=== PATIENT | female | born 1965 | race Caucasian/White ===

== ENCOUNTER 2018-06-21 07:08 | Inpatient (IN) ==
[2018-06-21] MEDS ORDERED: ONDANSETRON INJ 2 MG/ML 2 ML VIAL IV STA (07:51)
[2018-06-21] MEDS ORDERED: MoRPHine SULFATE 4 MG/ML 1 ML CARP\\VIAL IV STA ×2 (07:51→09:28)
[2018-06-21 08:14] LABS: Basophils # (auto) 0.02 K/uL (0-0.2); Basophils % (auto) 0.1 %; Eosinophils # (auto) 0.02 K/uL (0-0.5); Eosinophils % (auto) 0.1 %; Hematocrit (blood only) 32.5 % (37-47); Hemoglobin 10.8 g/dL (12.0-16.0); Immature Granulocytes # (auto) 0.08 K/uL (0.00-0.02); Immature Granulocytes % (auto) 0.4 %; Lymphocytes # (auto) 1.01 K/uL (1.2-3.4); Lymphocytes % (auto) 4.6 %; Mean Corpuscular Hgb Conc 33.2 g/dL (32-36); Mean Corpuscular Volume 80.8 fL (80-100); Monocytes # (auto) 1.49 K/uL (0.11-0.59); Monocytes % (auto) 6.7 %; Neutrophils # (auto) 19.52 K/uL (1.4-6.5); Neutrophils % (auto) 88.1 %; Platelet Count 368 K/uL (130-400); RDW Standard Deviation 44.3 fL (36.4-46.3); Red Blood Count 4.02 M/uL (4.2-5.4); White Blood Count 22.14 K/uL (4.8-10.8)
[2018-06-21 08:34] LABS: BUN Creatinine Ratio 16.3 (10-20); Calcium 9.5 mg/dl (8.5-10.1); Est GFR (African American) 64.7; Est GFR (Non-African American) 55.8
[2018-06-21 08:37] LABS: Albumin Globulin Ratio 0.7 (0.9-2); Bilirubin,Total 0.5 mg/dl (0.2-1); Globulin 4.1 gm/dl (2.5-4.0); Total Protein 7.1 gm/dl (6.4-8.2)
--- NOTE | 2018-06-21 09:10 | XRay Report ---
PA CHEST WITH ABDOMINAL SERIES CLINICAL HISTORY: Generalized abdominal pain. FINDINGS: A PA chest radiograph is obtained. No prior studies are available for comparison at the time of dicta tion. The cardiomediastinal silhouette is unremarkable. The lungs and pleural spaces are clear. No p neumothorax is seen. The bony thorax is grossly intact. Supine and erect abdominal radiographs are obtained. No prior studies are available for comparison at the time of dictation. There is a nonobstructed abdominal bowel gas pattern. No evidence of intrape ritoneal free air is seen. There are no abnormal abdominal calcifications. Phleboliths are seen in th e pelvis. The lumbosacral spine and bony pelvis appear intact. A naval piercing is noted. IMPRESSION: 1. No active disease in the chest. 2. Nonobstructed abdominal bowel gas pattern. Electronically signed by: Brent Moncada M.D. 06/21/2018 9:08 AM
[2018-06-21] MEDS ORDERED: IOVERSOL 100ml IV PRN (10:13)
--- NOTE | 2018-06-21 10:35 | CT Scan Report ---
CT SCAN OF THE ABDOMEN AND PELVIS WITH IV CONTRAST CLINICAL HISTORY: Generalized abdominal pain. COMPARISON STUDY: Abdominal radiographs dated 06/21/2018. TECHNIQUE: Following the IV administration of 93 cc of Optiray 320, CT scan of the abdomen and pelvi s is performed from the lung bases to the proximal femora. Images are reviewed in the axial, sagittal , and coronal planes. IV contrast was administered without complication. A dose lowering technique wa s utilized adhering to the principles of ALARA. CT DOSE: 570.95 mGy.cm FINDINGS: Lung bases: The heart is normal in size and without pericardial effusion. The lung bases are clear no ting bibasilar atelectasis. Liver: The contrast-enhanced liver is enlarged, measuring 24.3 cm in length. The liver is otherwise n ormal in contour and attenuation. There is no intrahepatic biliary ductal dilatation. The hepatic vei ns and portal veins are patent. Gallbladder: Unremarkable. Spleen: Normal in size and attenuation. Pancreas: Unremarkable. Adrenal glands: Unremarkable. Kidneys: The contrast enhanced kidneys are normal in size and without hydronephrosis. The kidneys enh ance symmetrically. Abdominal vasculature: The abdominal aorta is normal in course and caliber. Bowel: There is moderate colonic diverticulosis. There is significant clonic wall thickening and lupe a involving the distal descending/proximal sigmoid colon with surrounding pericolonic infiltration an d fluid consistent with severe acute diverticulitis. A diverticular abscess is seen along the medial aspect of the descending colon on image #[id number] and measures 3.3 x 2.7 cm. There is wall thickening invo lving loops of small bowel identified in the left midabdomen with surrounding mesenteric infiltration , likely related to adjacent diverticulitis. There is no bowel obstruction. The appendix is well-vis ualized and normal. Peritoneum: There is a small volume of abdominopelvic ascites. No intraperitoneal free air is seen. A naval piercing is noted. There is a small fat-containing umbilical hernia. Lymphadenopathy: None. Pelvic viscera: The bladder, uterus, and adnexa are normal as imaged. Skeletal structures: No lytic or blastic lesions are seen. IMPRESSION: 1. There is moderate colonic diverticulosis with evidence of severe acute diverticulitis involving th e distal descending/proximal sigmoid colon. 2. No intraperitoneal free air is seen. 3. A diverticular abscess is identified adjacent to the descending colon and measures 3.3 x 2.7 cm. 4. There is a small volume of abdominopelvic ascites. 5. There are thick-walled and edematous loops of small bowel in the left midabdomen with surrounding mesenteric infiltration. This is likely related to adjacent diverticulitis. 6. Hepatomegaly. 7. Additional findings as above. Electronically signed by: Brent Moncada M.D. 06/21/2018 10:34 AM
[2018-06-21] MEDS ORDERED: PIPERACILLIN/TAZOBACTAM 4.5 GM/120 ML BAG IV ONE (10:47)
[2018-06-21] MEDS ORDERED: PIPERACILL/TAZOBAC CONSULT ACTIVE PRN ×2 (10:47→12:54)
[2018-06-21] MEDS ORDERED: VANCOMYCIN HCL 1,000 MG/270 ML BAG IV STA (11:21)
[2018-06-21] MEDS ORDERED: VANCOMYCIN CONSULT ACTIVE PRN (11:21)
[2018-06-21] MEDS ORDERED: PIPERACILLIN/TAZOBACTAM 3.375 GM in DEXTROSE 5% 100 ML IV SCH (11:45)
--- NOTE | 2018-06-21 11:50 | History & Physical Report ---
Date of Service June 21, 2018 Assessment & Plan (1) Diverticulitis of intestine with abscess: Pt presented to ER with c/o abdominal pain x 2-3 days with tactile fevers and decreased appetite yesterday In ER pt afebrile, P: 104 down to 77, R: 18, BP: 135/88, 97% on RA. WBC: 22, H/H: 10.8/32.5, LFTs: WNL, Lipase: 61 CT ABD/PELVIS: 1. There is moderate colonic diverticulosis with evidence of severe acute diverticulitis involving the distal descending/proximal sigmoid colon. 2. No intraperitoneal free air is seen. 3. A diverticular abscess is identified adjacent to the descending colon and measures 3.3 x 2.7 cm. 4. There is a small volume of abdominopelvic ascites. 5. There are thick-walled and edematous loops of small bowel in the left midabdomen with surrounding mesenteric infiltration. This is likely related to adjacent diverticulitis. 6. Hepatomegaly. -In ER pt was given zofran, morphine, zosyn -Obtain lactic acid, blood cultures (cultures collected after zosyn started) -Zosyn, Vancomycin -IVF -NPO with sips and ice chips -GI consult, appreciate recommendations -General surgery consult, appreciate recommendations -Monitor CBC, BMP DVT Prophylaxis -Low risk, ambulate Full Code Pt does not have PCP. Pt was seen with Dr Prajapati. See addendum History of Present Illness Chief Complaint: Abdominal pain Primary Care Provider: NO PCP Pt is 52 y/o F with no significant past medical history presented to ER with complaint of abdominal pain x3 days. Patient states 3 days ago started with some low back aching and mild abdominal discomfort. Yesterday with increased abdominal pain worse to lower quadrants however pain is diffuse and described as sharp. Patient reports noted abdominal bloating. Yesterday with decreased ap petite and oral intake. Last night reports chills and tactile fevers. Denies nausea, vomiting, diarrhea, constipation. Denies ABBOTT, dizziness, syncope, vision changes, neck pain, CP, SOB, orthopnea, palpitations, cough, sore throat, choking, otalgia, rhinorrhea, melena, hematochezia, paresthesias, weakness, extremity edema, rashes, urinary symptoms. No hx colonoscopy. 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 Beliefs That Will Affect Care: None Current Living Situation: Alone Other Information That Helps Us Care for You: No Feels Safe at Home: Yes Safety Concerns: Feels Safe At This Time Smoking Status: Never smoker Do You Dip or Chew Tobacco: No Hx Alcohol Use: Yes (5 drinks a week) Hx Substance Use: No Review of Systems Review of Systems: All systems reviewed & are unremarkable except as noted in HPI & below Physical Exam Physical Exam: General: mild distress, holding abdomen, non-toxic appearance, WDWN Head: normocephalic, atraumatic Eyes: conjunctiva non-injected, anicteric ENT: normal inspection external ears, nose, mucous membranes mildly dry Neck: supple, trachea midline Lungs: clear, no respiratory distress, no wheezing/rhonchi/rales CV: RRR, no murmur, no pretibial edema Abd: normal BS, soft, slightly distended, +moderate tenderness to palpation, LLQ, RLQ with guarding, mild tenderness to palpation LUQ, RUQ Ext: no cyanosis, no calf tenderness Neuro: A&O x 3, no focal deficits noted, normal affect Skin: warm, dry Results & Data Vital Signs (Past 12 Hours) Vital Signs Temp Pulse Pulse Resp BP BP Pulse Ox 06/21/18 10:31 77 20 125/76 99 06/21/18 07:14 36.8 C 104 H 18 135/88 97 Laboratory Results Short CBC 06/21/18 Range/Units 08:06 WBC 22.14 H (4.8-10.8) K/uL Hgb 10.8 L (12.0-16.0) g/dL Hct 32.5 L (37-47) % Plt Count 368 (130-400) K/uL BMP 06/21/18 08:06 Sodium 139 Potassium 4.0 Chloride 109 H Carbon Dioxide 24 BUN 18 Creatinine 1.13 Glucose 105 H Calcium 9.5 Liver Function 06/21/18 Range/Units 08:06 Total Bilirubin 0.5 (0.2-1) mg/dl AST 23 (15-37) U/L ALT 27 (12-78) U/L Alkaline Phosphatase 42 L (45-117) U/L Albumin 3.0 L (3.4-5.0) gm/dl Diagnostic Findings CT ABD/PELVIS: IMPRESSION: 1. There is moderate colonic diverticulosis with evidence of severe acute diverticulitis involving the distal descending/proximal sigmoid colon. 2. No intraperitoneal free air is seen. 3. A diverticular abscess is identified adjacent to the descending colon and measures 3.3 x 2.7 cm. 4. There is a small volume of abdominopelvic ascites. 5. There are thick-walled and edematous loops of small bowel in the left midabdomen with surrounding mesenteric infiltration. This is likely related to adjacent diverticulitis. 6. Hepatomegaly. 7. Additional findings as above. CXR/ABD XRAY: IMPRESSION: 1. No active disease in the chest. 2. Nonobstructed abdominal bowel gas pattern. ECG Rhythm: normal sinus Supervising Physician Co-Signing Physician Notes ATTENDING ADDENDUM: Patient seen and examined, care coordinated with Isabella Herman PA-C This is a 52-year-old healthy female, with no known medical history, does not follow with any family physician, Presented with abdominal pain, for the past 2 days, No report of fever chills, no nausea vomiting or diarrhea CT abdomen pelvis in ER showed acute diverticulitis with diverticular abscess located in the descending colon size 3.2 X 2.7 cm Labs: Leukocytosis 22KLactic acid 0.7/mild elevation of procalcitonin 2.20 Afebrile mild tachycardia, improved with IV hydration, blood pressure stable 135/88, no hypoxia Stable to be admitted to medical surgical floor Empiric antibiotic with IV Zosyn Blood cultures ordered No evidence of microperforation noted in CT abdomen pelvis Bowel rest, n.p.o. okay to have ice chips sips of water IV fluids with LR at the rate 150 mL/h Pain controlled: IV Tylenol/Toradol/IV morphine for severe pain Surgery consult requested, Surgery team was updated by ER physician, Patient did not had any screening colonoscopy: Age 52 GI evaluation requested will need outpatient colonoscopy in 4 to 6 weeks, after acute diverticulitis resolves Patient is encouraged to establish care with family physicianagreeable Status: Full code VT prophylaxis: SCD and teds, low risk Patient is encouraged to ambulate Please refer to further documentation by Isabella Herman PA-C for discussion of other chronic issues Myrna Prajapati MD
[2018-06-21 12:08] LABS: Prothrombin Time 10.3 Seconds (9.0-12.0)
[2018-06-21] MEDS ORDERED: ONDANSETRON INJ 2 MG/ML 2 ML VIAL IV PRN (12:54)
[2018-06-21] MEDS ORDERED: KETOROLAC TROMETHAMINE 15 MG/ML VIAL IV PRN (12:54)
--- NOTE | 2018-06-21 12:54 | Consultation ---
Date of Consultation June 21, 2018 Assessment & Plan (1) Diverticulitis of intestine with abscess: 52 yr old woman with first episode of severe sigmoid diverticulitis with small abscess. Discussed initial nonoperative management with IV antibiotics, IVF, bowel rest. If no improvement in 48 hrs, would repeat CT to see if the abscess is larger and amenable to drainage. Discussed possibility of exploratory laparotomy, sigmoid resection, colostomy if she fails conservative management. All questions answered. Will follow. Dr. Pineda to take over tomorrow. Present on Admission?: Yes History of Present Illness Requesting Physician: Dr. Prajapati Reason for Consultation: perforated diverticulitis with abscess Attending Physician: Myrna Prajapati MD History of Present Illness 52 yr old woman who presented to the ER with abdominal pain that started 3 days ago. Initially thought she may have wrenched a muscle in her back. Pain localized more to the abdomen, most severe in bilateral lower quadrants but would radiate up through entire abdomen. Comes in waves of sharp/ stabbing/ cramping intensity. Unable to get comfortable in any position. No similar episodes in the past (did have a kidney issue with severe back pain at that time). No nausea or vomiting. Last bowel movement was this am and was normal. No fever noted but she was chilled last night. No relieving or exacerbating factors. Does have a family history of diverticular disease (half sister and mother). No fam history of colon cancer. 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 Beliefs That Will Affect Care: None Current Living Situation: Alone Other Information That Helps Us Care for You: No Feels Safe at Home: Yes Safety Concerns: Feels Safe At This Time Smoking Status: Never smoker Do You Dip or Chew Tobacco: No Hx Alcohol Use: Yes (5 drinks a week) Hx Substance Use: No Review of Systems Review of Systems: All systems reviewed & are unremarkable except as noted in HPI & below Physical Exam Constitutional: WD/WN, vitals as above Eyes: PERRL, conjunctivae normal, anicteric sclerae ENMT: external ear and nose normal, oropharynx normal Respiratory: normal respiratory effort, lungs clear to auscultation Cardiovascular: RRR, no murmur, no edema Gastrointestinal (Abdomen): Inspection/Auscultation: abdomen normal to inspection and + hypoactive bowel sounds; abdomen not distended Percussion/Palpation: + abdomen tender (diffusely but worst in lower quadrants), + guarding (lower abdomen bilaterally) and abdomen soft Skin: no rashes, warm and dry Neurologic: moves all extremities; no focal motor deficits Psychiatric: A+Ox3, euthymic affect Results & Data Vital Signs (Past 12 Hours) Vital Signs Temp Pulse Pulse Resp BP BP Pulse Ox 06/21/18 12:31 78 18 122/77 100 06/21/18 10:31 77 20 125/76 99 06/21/18 07:14 36.8 C 104 H 18 135/88 [address] 22.14 Hct 32[address] scan personally reviewed. IMPRESSION: 1. There is moderate colonic diverticulosis with evidence of severe acute diverticulitis involving the distal descending/proximal sigmoid colon. 2. No intraperitoneal free air is seen. 3. A diverticular abscess is identified adjacent to the descending colon and measures 3.3 x 2.7 cm. 4. There is a small volume of abdominopelvic ascites. 5. There are thick-walled and edematous loops of small bowel in the left midabdomen with surrounding mesenteric infiltration. This is likely related to adjacent diverticulitis. 6. Hepatomegaly. 7. Additional findings as above.
[2018-06-21] MEDS ORDERED: KETOROLAC TROMETHAMINE 15 MG/ML VIAL ONE (13:03)
[2018-06-21] MEDS: LACTATED RINGER'S 1,000 ML IV SCH ×2 (13:05→21:02)
[2018-06-21] MEDS: ACETAMINOPHEN 1,000 MG/100 ML VIAL IV SCH ×2 (13:43→21:02)
--- NOTE | 2018-06-21 14:53 | Emergency Department Note ---
History of Present Illness General Chief complaint: Abdominal Pain Stated complaint: ABD PAIN,LOWER BACK PAIN Time Seen by Provider: 06/21/18 07:28 Source: patient and friends Mode of arrival: ambulatory Limitations: no limitations History of Present Illness Maximum Pain Intensity: 5 This 52-year-old white female presents for evaluation of acute abdominal pain that began 2 days ago. There is no abdominal trauma. Patient states she worked out at the gym and was doing power lifting. She has a history of sports hernia, and states this feels somewhat similar. Pain comes in waves and is occasionally sharp, crampy, and severe. It seems to radiate up into her torso at times. Pain is not limited to her groin, but is rather diffuse across her abdomen. It is worse in the left lower quadrant. She has had a loss of appetite. She did move her bowels this morning without improvement. She has been urinating n ormally. She denies any fever but did have chills last night. A female friend accompanies her today. She did have a cup of coffee this morning. No food this morning. She does state that she has been increasing seeds and nuts in her diet, and has been eating a lot of trail mix. 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 Beliefs That Will Affect Care: None Current Living Situation: Alone Other Information That Helps Us Care for You: No Feels Safe at Home: Yes Safety Concerns: Feels Safe At This Time Smoking Status: Never smoker Do You Dip or Chew Tobacco: No Hx Alcohol Use: Yes (5 drinks a week) Hx Substance Use: No Review of Systems A total of 10 systems reviewed and were otherwise negative Physical Exam Vital Signs Vital Signs - 24 hr 06/21/18 07:14 06/21/18 08:20 06/21/18 10:31 Temperature 36.8 C Temperature Source Oral Sepsis Recent Fever Within 48 Hours No Sepsis Action Taken by Nursing No Action Required Pulse Rate 104 H Pulse Rate [Right Finger] 77 Pulse Rhythm Regular Pulse Rhythm [Right Finger] Regular Pulse Strength Normal Pulse Strength [Right Finger] Normal Respiratory Rate 18 20 Respiratory Effort / Characteristics Non-Labored Respiratory Depth Normal Respiratory Pattern Regular Blood Pressure 135/88 Blood Pressure [Left Arm] 125/76 Blood Pressure Mean 103 Blood Pressure Mean [Left Arm] 92 Blood Pressure Position Sitting Blood Pressure Position [Left Arm] Pulse Oximetry 97 99 Oxygen Delivery Method Room Air Room Air Room Air 06/21/18 12:09 06/21/18 12:31 06/21/18 12:56 Temperature 36.7 C Temperature Source Oral Sepsis Recent Fever Within 48 Hours Sepsis Action Taken by Nursing Pulse Rate Pulse Rate [Right Finger] 78 88 Pulse Rhythm Pulse Rhythm [Right Finger] Pulse Strength Pulse Strength [Right Finger] Respiratory Rate 18 17 Respiratory Effort / Characteristics Respiratory Depth Respiratory Pattern Blood Pressure Blood Pressure [Left Arm] 122/77 122/77 Blood Pressure Mean Blood Pressure Mean [Left Arm] 92 92 Blood Pressure Position Blood Pressure Position [Left Arm] Sitting Pulse Oximetry 100 98 Oxygen Delivery Method Room Air Room Air Room Air General: Well-developed, well-nourished, middle-aged white distress. Obvious discomfort. Sitting on a bed. Alert and oriented. Skin: Warm and dry with good turgor. No rashes or lesions. No ecchymosis or erythema. The patient is not diaphoretic. No abrasions. Pierced navel. Heart: Heart RRR. No MGR. Peripheral pulses are 2+. Lungs: Lungs are clear to auscultation. No crackles rhonchi or wheezing. Good air movement. The patient is able to take a deep breath. Abdomen: Abdomen was inspected, auscultated, and palpated. Bowel sounds present x 4 but very infrequent. Soft, diffuse tenderness to palpation, worst in the left lower quadrant. No hepato-splenomegaly. No masses noted. No rebound, negative Joseph sign. No pain over McBurney's point. No CVA tenderness. Musculoskeletal: Well muscled individual. Full range of motion of the upper and lower extremities. Mild discomfort with palpation over the posterior spinal musculature is in the lumbar region. No pain with palpation over the spinal column or SI joints. Neurologic: Gross sensation is intact across the upper and lower extremities by soft touch. Course Administered Medications Lactated Ringer's (Lr) 1,000 mls @ 125 mls/hr IV .Q8H KELLI Stop: 07/21/18 11:44 Last Admin: 06/21/18 13:05 Dose: 125 mls/hr Documented by: [id number] Acetaminophen (Ofirmev) 1,000 mg in 100 mls @ 400 mls/hr IV Q8H KELLI; Protocol Stop: 07/21/18 13:59 Last Infusion: 06/21/18 14:02 Dose: 0 mls/hr Documented by: [id number] Admin: 06/21/18 13:43 Dose: 400 mls/hr Documented by: [id number] Discontinued Medications Piperacillin Sod/Tazobactam Sod (Zosyn) 4.5 gm in 120 mls @ 240 mls/hr IV NOW ONE Stop: 06/21/18 11:16 Last Infusion: 06/21/18 12:55 Dose: 0 mls/hr Documented by: [id number] Admin: 06/21/18 11:01 Dose: 240 mls/hr Documented by: [id number] Ioversol (Optiray 320 100ml) 93 ml IV ONCE PRN PRN Reason: Interaction Checking Stop: 06/25/18 10:12 Last Admin: 06/21/18 10:13 Dose: 93 ml Documented by: [id number] Ketorolac Tromethamine (Toradol) Confirm Administered Dose 15 mg .ROUTE .STK-MED ONE Stop: 06/21/18 13:04 Last Admin: 06/21/18 13:05 Dose: 15 mg Documented by: [id number] Morphine Sulfate (Morphine Sulfate) 4 mg IV NOW STA Stop: 06/21/18 07:52 Last Admin: 06/21/18 08:12 Dose: 4 mg Documented by: [id number] Morphine Sulfate (Morphine Sulfate) 4 mg IV NOW STA Stop: 06/21/18 09:29 Last Admin: 06/21/18 10:14 Dose: 4 mg Documented by: [id number] Ondansetron HCl (Zofran) 4 mg IV NOW STA Stop: 06/21/18 07:52 Last Admin: 06/21/18 08:12 Dose: 4 mg Documented by: [id number] Medical Decision Making Differential Diagnosis Gastroenteritis, bowel obstruction, diverticulitis, appendicitis, cholecystitis, ovarian torsion Home Medications Current Medication List: was personally reviewed by me Laboratory Data Attestation: I reviewed the patient's lab results. CBC lipase, and chemistry panel were obtained. Elevated white count of 22,000. Chemistry panel was unremarkable. Lipase is unremarkable. Result diagrams: 06/21/18 08:06 06/21/18 08:06 Lab Results 06/21/18 06/21/18 06/21/18 Range/Units 08:06 08:06 08:07 WBC 22.14 H (4.8-10.8) K/uL RBC 4.02 L (4.2-5.4) M/uL Hgb 10.8 L (12.0-16.0) g/dL Hct 32.5 L (37-47) % MCV 80.8 (80-100) fL MCH 26.9 (25-34) pg MCHC 33.2 (32-36) g/dL RDW Std Deviation 44.3 (36.4-46.3) fL RDW Coeff of [place] 15.0 H (11.5-14.5) % Plt Count 368 (130-400) K/uL MPV 10.0 (7.4-10.4) fL Immature Gran % (Auto) 0.4 % Neut % (Auto) 88.1 % Lymph % (Auto) 4.6 % [place] % (Auto) 6.7 % Eos % (Auto) 0.1 % Baso % (Auto) 0.1 % Immature Gran # (Auto) 0.08 H (0.00-0.02) K/uL Neut # (Auto) 19.52 H (1.4-6.5) K/uL Lymph # (Auto) 1.01 L (1.2-3.4) K/uL [place] # (Auto) 1.49 H (0.11-0.59) K/uL Eos # (Auto) 0.02 (0-0.5) K/uL Baso # (Auto) 0.02 (0-0.2) K/uL PT 10.3 (9.0-12.0) Seconds INR 1.0 (0.9-1.1) Sodium 139 (136-145) mmol/L Potassium 4.0 (3.5-5.1) mmol/L Chloride 109 H (98-107) mmol/L Carbon Dioxide 24 (21-32) mmol/L Anion Gap 5.0 (3-11) BUN 18 (7-18) mg/dl Creatinine 1.13 (0.6-1.2) mg/dl Est Cr Clr Drug Dosing 63.0 ml/min Est GFR ( Amer) 64.7 Est GFR (Non-Af Amer) 55.8 BUN/Creatinine Ratio 16.3 (10-20) Glucose 105 H (70-99) mg/dl Lactate (0.4-2.0) mmol/L Calcium 9.5 (8.5-10.1) mg/dl Total Bilirubin 0.5 (0.2-1) mg/dl AST 23 (15-37) U/L ALT 27 (12-78) U/L Alkaline Phosphatase 42 L (45-117) U/L Total Protein 7.1 (6.4-8.2) gm/dl Albumin 3.0 L (3.4-5.0) gm/dl Globulin 4.1 H (2.5-4.0) gm/dl Albumin/Globulin Ratio 0.7 L (0.9-2) Lipase 61 L (73-393) U/L Procalcitonin (0-0.5) ng/ml 06/21/18 06/21/18 Range/Units 08:07 11:52 WBC (4.8-10.8) K/uL RBC (4.2-5.4) M/uL Hgb (12.0-16.0) g/dL Hct (37-47) % MCV (80-100) fL MCH (25-34) pg MCHC (32-36) g/dL RDW Std Deviation (36.4-46.3) fL RDW Coeff of [place] (11.5-14.5) % Plt Count (130-400) K/uL MPV (7.4-10.4) fL Immature Gran % (Auto) % Neut % (Auto) % Lymph % (Auto) % [place] % (Auto) % Eos % (Auto) % Baso % (Auto) % Immature Gran # (Auto) (0.00-0.02) K/uL Neut # (Auto) (1.4-6.5) K/uL Lymph # (Auto) (1.2-3.4) K/uL [place] # (Auto) (0.11-0.59) K/uL Eos # (Auto) (0-0.5) K/uL Baso # (Auto) (0-0.2) K/uL PT (9.0-12.0) Seconds INR (0.9-1.1) Sodium (136-145) mmol/L Potassium (3.5-5.1) mmol/L Chloride (98-107) mmol/L Carbon Dioxide (21-32) mmol/L Anion Gap (3-11) BUN (7-18) mg/dl Creatinine (0.6-1.2) mg/dl Est Cr Clr Drug Dosing ml/min Est GFR ( Amer) Est GFR (Non-Af Amer) BUN/Creatinine Ratio (10-20) Glucose (70-99) mg/dl Lactate 0.7 (0.4-2.0) mmol/L Calcium (8.5-10.1) mg/dl Total Bilirubin (0.2-1) mg/dl AST (15-37) U/L ALT (12-78) U/L Alkaline Phosphatase (45-117) U/L Total Protein (6.4-8.2) gm/dl Albumin (3.4-5.0) gm/dl Globulin (2.5-4.0) gm/dl Albumin/Globulin Ratio (0.9-2) Lipase (73-393) U/L Procalcitonin 2.20 H (0-0.5) ng/ml Imaging Data Attestation: I personally reviewed and interpreted this imaging study as follows: Radiologist's Impression: Acute abdominal x-ray series obtained today was reviewed by me and read by radiology. Nonobstructive bowel gas pattern. No acute cardiopulmonary abnormality. CT scan imaging of the abdomen and pelvis with IV contrast was also obtained. This was read as moderate colonic diverticulosis with evidence of severe acute diverticulitis involving the distal descending/proximal sigmoid colon. No intraperitoneal free air is seen. A diverticular abscess is identified adjacent to the descending colon and measures 3.3 x 2.7 cm. There is a small volume of abdominopelvic ascites. There are thick-walled and edematous loops of small bowel in the left midabdomen with surrounding mesenteric infiltration. This is likely related to adjacent diverticulitis. Hepatomegaly. ECG Data Attestation: I personally reviewed and interpreted this ECG as follows: Additional Comments: EKG shows bradycardia with a normal sinus rhythm. Rate of 60. No acute ST or T wave changes. This was reviewed with Dr. Dueñas. Blood Pressure Blood Pressure Findings: Normal blood pressure MDM Narrative Patient was educated regarding today's findings. Conservative care measures were discussed. She was evaluated in B7. She was kept n.p.o. IV was established. Labs were obtained. Acute abdominal x-ray series was obtained. No abnormalities were noted. CT scan imaging of the abdomen and pelvis was obtained with IV contrast due to her continued discomfort. CT scan imaging showed diverticulitis and a small abscess. I did speak with the radiologist regarding draining the abscess. He stated it was too small for draining. I did speak with Dr. Martin from general surgery to make her aware of this patient. I also consulted the hospitalist service for admission. Please see that dictation for final management. Patient was given morphine 4 mg IV x2 and Zofran 4 mg swollen for pain and nausea. She was also given Zosyn 4.5 g IV after the diverticulitis was known. Patient remained stable while in the ED. Impression & Plan Diverticulitis of intestine with abscess Discharge Plan Visit Data *Final* Discharge Date/Time: 06/21/18 12:31 Chief Complaint: Abdominal Pain Stated Complaint: ABD PAIN,LOWER BACK PAIN ED Provider: Figueroa Dueñas ED Midlevel Provider: Alphonso Haque Discharge Problem: Diverticulitis of intestine with abscess Patient Disposition: Admitted As Inpatient Discharge Instructions Interventions: ED Discharge Assessment Last Done: 06/21/18 12:31
[2018-06-21 16:38] LABS: Appearance Urine Clear (Clear); Bacteria Urine Automated 1+ (Negative); Blood Urine Negative (Negative); Color Urine Dark Yellow; Epithelial Cell Urine Auto >30 /lpf (0-5); Glucose Urine UA Negative (Negative); Ketones Urine Trace (Negative); Leukocyte Esterase Urine Negative (Negative); Nitrite Urine Negative (Negative); Protein Urine 2+ (Negative); RBC Urine Automated 0-4 /hpf (0-4); Specific Gravity Urine > 1.045 (1.000-1.030); Urobilinogen Urine Negative (Negative)
[2018-06-21 16:42] LABS: Bilirubin Urine Negative (Negative); Ictotest Urine Negative (Negative)
[2018-06-21] MEDS: PIPERACILLIN/TAZOBACTAM 3.375 GM in DEXTROSE 5% 100 ML IV SCH ×2 (16:58→23:39)
[2018-06-21] MEDS: MoRPHine SULFATE 2 MG/ML CARP IV PRN (18:21)
[2018-06-21] MEDS ORDERED: FLUCONAZOLE 50 MG TAB PO ONE (18:46)
[2018-06-22] MEDS: LACTATED RINGER'S 1,000 ML IV SCH ×3 (04:58→17:42)
[2018-06-22] MEDS: ACETAMINOPHEN 1,000 MG/100 ML VIAL IV SCH ×3 (04:58→22:22)
[2018-06-22 07:13] LABS: Hematocrit (blood only) 29.9 % (37-47); Hemoglobin 9.9 g/dL (12.0-16.0); Mean Corpuscular Hgb Conc 33.1 g/dL (32-36); Mean Corpuscular Volume 79.7 fL (80-100); Mean Platelet Volume 9.9 fL (7.4-10.4); Platelet Count 316 K/uL (130-400); RDW Coefficient of Variation 15.2 % (11.5-14.5); RDW Standard Deviation 44.4 fL (36.4-46.3); Red Blood Count 3.75 M/uL (4.2-5.4); White Blood Count 23.83 K/uL (4.8-10.8)
[2018-06-22 07:31] LABS: Basophils # (auto) 0.04 K/uL (0-0.2); Basophils % (auto) 0.2 %; Eosinophils # (auto) 0.09 K/uL (0-0.5); Eosinophils % (auto) 0.4 %; Immature Granulocytes # (auto) 0.12 K/uL (0.00-0.02); Immature Granulocytes % (auto) 0.5 %; Lymphocytes # (auto) 0.92 K/uL (1.2-3.4); Lymphocytes % (auto) 3.9 %; Monocytes # (auto) 2.07 K/uL (0.11-0.59); Monocytes % (auto) 8.7 %; Neutrophils # (auto) 20.59 K/uL (1.4-6.5); Neutrophils % (auto) 86.3 %
[2018-06-22 07:47] LABS: BUN Creatinine Ratio 14.4 (10-20); Calcium 8.6 mg/dl (8.5-10.1); Creatinine Clr Calc Pharmacy 55.2 ml/min; Est GFR (African American) 55.1; Est GFR (Non-African American) 47.6
[2018-06-22] MEDS: PIPERACILLIN/TAZOBACTAM 3.375 GM in DEXTROSE 5% 100 ML IV SCH ×2 (08:03→15:55)
[2018-06-22] MEDS ORDERED: DICYCLOMINE HCL 10 MG CAP PO PRN (09:22)
--- NOTE | 2018-06-22 09:22 | Gastrointestinal Consultation ---
Date of Consultation June 22, 2018 Assessment & Plan (1) Diverticulitis of intestine with abscess: Pt is a 52 y/o female admitted w acute diverticulitis w abscess formation adjacent to descending colon area measuring about 3cm. - NPO; continue IVF hydration - Continue Zosyn IV - Surgery involved, appreciate recs - Consider repeat CT abd/pelvis w contrast in 2-3 days time to re-eval abscess ; or sooner if abd pain worse w addition of other concerning symptoms such as fever, chills, n/v. - Colonoscopy in 4-6 week's time. Supervising Physician Co-Signing Physician Notes I have personally seen and examined the patient with YARITZA Wu. Her note reflects my exam and findings. I agree with her impression and plan. From a GI perspective, the patient needs a colonoscopy in 4-6 weeks after successful treatment of her diverticulitis. The rest of her care as per surgery and primary team. Anuel Zhou M.D. History of Present Illness Reason for Consultation: Diverticulitis w abscess Requesting Physician: Dr. Myrna Prajapati Attending Physician: Dr. Anuel Zhou History of Present Illness Pt is a 52 y/o female who presented to ED yesterday w c/o low back pain and abd cramping symptoms. Started out as low back pain about 3 days prior, then started getting lower abd cramping which turned to diffusely. Deneis any associated fever, chills, CP, SOB, n/v. Upon evaluation, noted to have leukocytosis, LFTs area normal. CT abd/pelvis w contrast showed moderate colonic diverticulosis with evidence of severe acute diverticulitis involving the distal descending/proximal sigmoid colon. There's a diverticular abscess adjacent to the descending colon measuring 3.3 x 2.7 cm. + small volume ascites, + hepatomegaly. No intraperitoneal free air. She's made NPO, started on IVF, IV Zosyn. Pt denies hx of constipation. BM regular, just had one this AM. Her sister had hx of complicated diverticulitis, requiring partial bowel resection. Denies family hx of colorectal ca. + mom hx of polyps. Pt never had a colonoscopy before. Today she feel still some mild abd cramping on lower areas, but still no fever, chills, N/V. Is passing flatus and BMs. Allergies Allergy/AdvReac Type Severity Reaction Status Date / Time No Known Allergies Allergy Unverified 06/21/18 08:03 Home Medications Home Medications Medication Instructions Recorded Confirmed Type No Known Home Medications 06/21/18 06/21/18 History piperacillin-tazobactam [Zosyn] 4.5 gm IV Q6H 14 Days ea 06/22/18 Rx Patient History Medical History No significant past medical history (Chronic) Surgical History History of nasal septoplasty (Chronic) History of hernia repair (Chronic) History of dental surgery Family History Mother Stroke Father Mesothelioma Social History Preferred Language: Thai Communication Ability: Effective 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 Beliefs That Will Affect Care: None Current Living Situation: Alone Other Information That Helps Us Care for You: No Feels Safe at Home: Yes Safety Concerns: Feels Safe At This Time Smoking Status: Never smoker Do You Dip or Chew Tobacco: No Hx Alcohol Use: Yes (5 drinks a week) Hx Substance Use: No Review of Systems Review of Systems: All systems reviewed & are unremarkable except as noted in HPI & below Physical Exam Constitutional: WD/WN, vitals as above well groomed, cooperative and comfortable Eyes: PERRL, conjunctivae normal, anicteric sclerae ENMT: external ear and nose normal, oropharynx normal Respiratory: normal respiratory effort, lungs clear to auscultation Cardiovascular: RRR, no murmur, no edema Gastrointestinal (Abdomen): Inspection/Auscultation: normal bowel sounds Percussion/Palpation: + abdomen tender (diffuse) and abdomen soft Skin: no rashes, warm and dry no jaundice Neurologic: Motor/Sensory: no asterixis Psychiatric: A+Ox3, euthymic affect Lymphatic: no lymphedema Results & Data Vital Signs (Past 12 Hours) Vital Signs Temp Pulse Pulse Resp BP Pulse Ox 06/22/18 07:52 37.2 C 80 12 110/72 95 06/21/18 23:10 37.2 C 81 16 105/67 96 Laboratory Results Laboratory Results - last 72 hr 06/21/18 06/21/18 06/21/18 08:06 08:06 08:07 WBC 22.14 H RBC 4.02 L Hgb 10.8 L Hct 32.5 L MCV 80.8 MCH 26.9 MCHC 33.2 RDW Std Deviation 44.3 RDW Coeff of [place] 15.0 H Plt Count 368 MPV 10.0 Immature Gran % (Auto) 0.4 Neut % (Auto) 88.1 Lymph % (Auto) 4.6 [place] % (Auto) 6.7 Eos % (Auto) 0.1 Baso % (Auto) 0.1 Immature Gran # (Auto) 0.08 H Neut # (Auto) 19.52 H Lymph # (Auto) 1.01 L [place] # (Auto) 1.49 H Eos # (Auto) 0.02 Baso # (Auto) 0.02 PT 10.3 INR 1.0 Sodium 139 Potassium 4.0 Chloride 109 H Carbon Dioxide 24 Anion Gap 5.0 BUN 18 Creatinine 1.13 Est Cr Clr Drug Dosing 63.0 Est GFR ( Amer) 64.7 Est GFR (Non-Af Amer) 55.8 BUN/Creatinine Ratio 16.3 Glucose 105 H Lactate Calcium 9.5 Total Bilirubin 0.5 AST 23 ALT 27 Alkaline Phosphatase 42 L Total Protein 7.1 Albumin 3.0 L Globulin 4.1 H Albumin/Globulin Ratio 0.7 L Lipase 61 L Procalcitonin Urine Color Urine Appearance Urine pH Ur Specific [place] Urine Protein Urine Glucose (UA) Urine Ketones Urine Blood Urine Nitrite Urine Bilirubin Urine Urobilinogen Ur Leukocyte Esterase Urine WBC (Auto) Urine RBC (Auto) U Hyaline Cast (Auto) U Epithel Cells (Auto) Urine Bacteria (Auto) 06/21/18 06/21/18 06/21/18 08:07 11:52 16:00 WBC RBC Hgb Hct MCV MCH MCHC RDW Std Deviation RDW Coeff of [place] Plt Count MPV Immature Gran % (Auto) Neut % (Auto) Lymph % (Auto) [place] % (Auto) Eos % (Auto) Baso % (Auto) Immature Gran # (Auto) Neut # (Auto) Lymph # (Auto) [place] # (Auto) Eos # (Auto) Baso # (Auto) PT INR Sodium Potassium Chloride Carbon Dioxide Anion Gap BUN Creatinine Est Cr Clr Drug Dosing Est GFR ( Amer) Est GFR (Non-Af Amer) BUN/Creatinine Ratio Glucose Lactate 0.7 Calcium Total Bilirubin AST ALT Alkaline Phosphatase Total Protein Albumin Globulin Albumin/Globulin Ratio Lipase Procalcitonin 2.20 H Urine Color Dark Yellow Urine Appearance Clear Urine pH 5.0 Ur Specific [place] > 1.045 H Urine Protein 2+ H Urine Glucose (UA) Negative Urine Ketones Trace H Urine Blood Negative Urine Nitrite Negative Urine Bilirubin Negative Urine Urobilinogen Negative Ur Leukocyte Esterase Negative Urine WBC (Auto) 5-10 H Urine RBC (Auto) 0-4 U Hyaline Cast (Auto) 1-5 U Epithel Cells (Auto) >30 H Urine Bacteria (Auto) 1+ H 06/22/18 06/22/18 07:04 07:04 WBC 23.83 H RBC 3.75 L Hgb 9.9 L Hct 29.9 L MCV 79.7 L MCH 26.4 MCHC 33.1 RDW Std Deviation 44.4 RDW Coeff of [place] 15.2 H Plt Count 316 MPV 9.9 Immature Gran % (Auto) 0.5 Neut % (Auto) 86.3 Lymph % (Auto) 3.9 [place] % (Auto) 8.7 Eos % (Auto) 0.4 Baso % (Auto) 0.2 Immature Gran # (Auto) 0.12 H Neut # (Auto) 20.59 H Lymph # (Auto) 0.92 L [place] # (Auto) 2.07 H Eos # (Auto) 0.09 Baso # (Auto) 0.04 PT INR Sodium 136 Potassium 4.0 Chloride 104 Carbon Dioxide 27 Anion Gap 5.0 BUN 19 H Creatinine 1.29 H Est Cr Clr Drug Dosing 55.2 Est GFR ( Amer) 55.1 Est GFR (Non-Af Amer) 47.6 BUN/Creatinine Ratio 14.4 Glucose 92 Lactate Calcium 8.6 Total Bilirubin AST ALT Alkaline Phosphatase Total Protein Albumin Globulin Albumin/Globulin Ratio Lipase Procalcitonin Urine Color Urine Appearance Urine pH Ur Specific [place] Urine Protein Urine Glucose (UA) Urine Ketones Urine Blood Urine Nitrite Urine Bilirubin Urine Urobilinogen Ur Leukocyte Esterase Urine WBC (Auto) Urine RBC (Auto) U Hyaline Cast (Auto) U Epithel Cells (Auto) Urine Bacteria (Auto) (1) Diverticulitis of intestine with abscess Diverticulitis bleeding: without bleeding Diverticulitis site: large intestine Qualified Code(s): K57.20 - Diverticulitis of large intestine with perforation and abscess without bleeding
[2018-06-22] MEDS: MoRPHine SULFATE 2 MG/ML CARP IV PRN (10:15)
--- NOTE | 2018-06-22 11:59 | CT Scan Report ---
CT abd pelvis wo con CT DOSE: 547.80 mGy.cm HISTORY: sigmoid abscess /rule out perforation TECHNIQUE: Multiaxial CT images of the abdomen and pelvis were performed without contrast. A dose lo wering technique was utilized adhering to the principles of ALARA. COMPARISON STUDY: 06/21/2018 FINDINGS: Interval development of bibasilar parenchymal infiltrative and atelectatic changes. Trace. Perisplenic ascites. Kidneys negative for hydronephrosis. Study is limited due to the absence of oral contrast. Liver is uniform. Gallbladder is mildly distend ed. Findings of mildly progressive colonic wall thickening and pericolonic infiltrative change throughout the colon. Findings of acute descending and proximal sigmoid diverticulitis are again noted. Extralu javid collection is again noted and is similar in overall size at 2.9 cm maximum. Mildly progressive wall thickening of several loops of small bowel in the left central abdominal region. A well-defined extraluminal air pocket is not appreciated. IMPRESSION: 1. Findings of stable to slightly progressive descending and proximal sigmoid diverticulitis. 2. Unchanging 2.9 cm pericolonic collection. 3. Mildly progressive edematous change of multiple small bowel loops in the left central abdomen with findings suggesting potential reactive edematous change or reactive ileus throughout the remainder o f the colon. 4. Slightly progressive abdominal and pelvic ascites. 5. The overall impression of the study is one of moderately progressive diverticulitis and secondary reactive inflammatory bowel change. The above report was generated using voice recognition software. It may contain grammatical, syntax or spelling errors. Electronically signed by: Rafiq Calderon M.D. 06/22/2018 11:57 AM
--- NOTE | 2018-06-22 12:17 | Surgery Progress Note ---
Date of Service PATIENT SEEN AT 9:[address] LUZ June 22, 2018 Assessment & Plan (1) Diverticulitis of intestine with abscess: 52 yr old woman with first episode of severe sigmoid diverticulitis with small abscess (measuring 3.3 x 2.7 cm) -afebrile, vitals stable - increase in leukocytosis to 23K (22K previously) - steadily increasing abdominal pain - Guarding and tender in the RLQ and LLQ (more in LLQ) on examination - concern for increasing size of peridiverticular abscess Plan: Given increase in leukocytosis and steadily increasing abdominal pain , would recommend transfer to tertiary center for interventional radiology to place drain. There is no signs of peritonitis one examination but given increase in pain, concern for increase in size of abscess. Continue strict NPO Continue IV Abx Continue IV pain management as needed Continue medical management Follow labs Discussed recommendations with Dr. Prajapati Hospitalist Dr. Luz has seen and examined patient, developed assessment and plan. Subjective pain seems to be increasing steadily passing flatus no nausea or vomiting Physical Exam Constitutional: WD/WN, vitals as above no acute distress and not ill appearing Respiratory: normal respiratory effort; no respiratory distress Gastrointestinal (Abdomen): Inspection/Auscultation: abdomen normal to inspection; abdomen not distended Percussion/Palpation: + abdomen tender (RLQ and LLQ, more so in LLQ), + guarding (LLQ) and abdomen soft; abdomen not rigid No peritonitis or rigidity Skin: no rashes, warm and dry Psychiatric: A+Ox3, euthymic affect Results & Data Vital Signs (Past 12 Hours) Vital Signs Temp Pulse Resp BP Pulse Ox 06/22/18 07:52 37.2 C 80 12 110/72 95 Laboratory Results 06/22/18 06/22/18 06/22/18 Range/Units 10:45 10:45 07:04 WBC (4.8-10.8) K/uL RBC (4.2-5.4) M/uL Hgb (12.0-16.0) g/dL Hct (37-47) % MCV (80-100) fL MCH (25-34) pg MCHC (32-36) g/dL RDW Std Deviation (36.4-46.3) fL RDW Coeff of Quinton (11.5-14.5) % Plt Count (130-400) K/uL MPV (7.4-10.4) fL Immature Gran % (Auto) % Neut % (Auto) % Lymph % (Auto) % [place] % (Auto) % Eos % (Auto) % Baso % (Auto) % Immature Gran # (Auto) (0.00-0.02) K/uL Neut # (Auto) (1.4-6.5) K/uL Lymph # (Auto) (1.2-3.4) K/uL [place] # (Auto) (0.11-0.59) K/uL Eos # (Auto) (0-0.5) K/uL Baso # (Auto) (0-0.2) K/uL Sodium 136 (136-145) mmol/L Potassium 4.0 (3.5-5.1) mmol/L Chloride 104 (98-107) mmol/L Carbon Dioxide 27 (21-32) mmol/L Anion Gap 5.0 (3-11) BUN 19 H (7-18) mg/dl Creatinine 1.29 H (0.6-1.2) mg/dl Est Cr Clr Drug Dosing 55.2 ml/min Est GFR ( Amer) 55.1 Est GFR (Non-Af Amer) 47.6 BUN/Creatinine Ratio 14.4 (10-20) Glucose 92 (70-99) mg/dl Lactate 0.9 (0.4-2.0) mmol/L Calcium 8.6 (8.5-10.1) mg/dl Procalcitonin 4.36 H (0-0.5) ng/ml Urine Color Urine Appearance (Clear) Urine pH (4.5-7.5) Ur Specific [place] (1.000-1.030) Urine Protein (Negative) Urine Glucose (UA) (Negative) Urine Ketones (Negative) Urine Blood (Negative) Urine Nitrite (Negative) Urine Bilirubin (Negative) Urine Urobilinogen (Negative) Ur Leukocyte Esterase (Negative) Urine WBC (Auto) (0-5) /hpf Urine RBC (Auto) (0-4) /hpf U Hyaline Cast (Auto) (0-5) /lpf U Epithel Cells (Auto) (0-5) /lpf Urine Bacteria (Auto) (Negative) 06/22/18 06/21/18 Range/Units 07:04 16:00 WBC 23.83 H (4.8-10.8) K/uL RBC 3.75 L (4.2-5.4) M/uL Hgb 9.9 L (12.0-16.0) g/dL Hct 29.9 L (37-47) % MCV 79.7 L (80-100) fL MCH 26.4 (25-34) pg MCHC 33.1 (32-36) g/dL RDW Std Deviation 44.4 (36.4-46.3) fL RDW Coeff of [place] 15.2 H (11.5-14.5) % Plt Count 316 (130-400) K/uL MPV 9.9 (7.4-10.4) fL Immature Gran % (Auto) 0.5 % Neut % (Auto) 86.3 % Lymph % (Auto) 3.9 % [place] % (Auto) 8.7 % Eos % (Auto) 0.4 % Baso % (Auto) 0.2 % Immature Gran # (Auto) 0.12 H (0.00-0.02) K/uL Neut # (Auto) 20.59 H (1.4-6.5) K/uL Lymph # (Auto) 0.92 L (1.2-3.4) K/uL [place] # (Auto) 2.07 H (0.11-0.59) K/uL Eos # (Auto) 0.09 (0-0.5) K/uL Baso # (Auto) 0.04 (0-0.2) K/uL Sodium (136-145) mmol/L Potassium (3.5-5.1) mmol/L Chloride (98-107) mmol/L Carbon Dioxide (21-32) mmol/L Anion Gap (3-11) BUN (7-18) mg/dl Creatinine (0.6-1.2) mg/dl Est Cr Clr Drug Dosing ml/min Est GFR ( Amer) Est GFR (Non-Af Amer) BUN/Creatinine Ratio (10-20) Glucose (70-99) mg/dl Lactate (0.4-2.0) mmol/L Calcium (8.5-10.1) mg/dl Procalcitonin (0-0.5) ng/ml Urine Color Dark Yellow Urine Appearance Clear (Clear) Urine pH 5.0 (4.5-7.5) Ur Specific [place] > 1.045 H (1.000-1.030) Urine Protein 2+ H (Negative) Urine Glucose (UA) Negative (Negative) Urine Ketones Trace H (Negative) Urine Blood Negative (Negative) Urine Nitrite Negative (Negative) Urine Bilirubin Negative (Negative) Urine Urobilinogen Negative (Negative) Ur Leukocyte Esterase Negative (Negative) Urine WBC (Auto) 5-10 H (0-5) /hpf Urine RBC (Auto) 0-4 (0-4) /hpf U Hyaline Cast (Auto) 1-5 (0-5) /lpf U Epithel Cells (Auto) >30 H (0-5) /lpf Urine Bacteria (Auto) 1+ H (Negative) (1) Diverticulitis of intestine with abscess Diverticulitis bleeding: without bleeding Diverticulitis site: large intestine Qualified Code(s): K57.20 - Diverticulitis of large intestine with perforation and abscess without bleeding
--- NOTE | 2018-06-22 12:18 | Discharge Summary ---
Date of Service June 22, 2018 Admission HPI Per Admitting Provider Pt is 52 y/o F with no significant past medical history presented to ER with complaint of abdominal pain x3 days. Patient states 3 days ago started with some low back aching and mild abdominal discomfort. Yesterday with increased abdominal pain worse to lower quadrants however pain is diffuse and described as sharp. Patient reports noted abdominal bloating. Yesterday with decreased appetite and oral intake. Last night reports chills and tactile fevers. Denies nausea, vomiting, diarrhea, constipation. Denies ABBOTT, dizziness, syncope, vision changes, neck pain, CP, SOB, orthopnea, palpitations, cough, sore throat, choking, otalgia, rhinorrhea, melena, hematochezia, paresthesias, weakness, extremity edema, rashes, urinary symptoms. No hx colonoscopy. Principal Diagnosis ACUTE SIGMOID DIVERTICULITIS/DIVERTICULAR ABSCESS Discharge Exam Constitutional WD/WN, vitals as above well groomed, cooperative and comfortable Eyes PERRL, conjunctivae normal, anicteric sclerae ENMT external ear and nose normal, oropharynx normal Respiratory normal respiratory effort, lungs clear to auscultation Cardiovascular RRR, no murmur, no edema Gastrointestinal (Abdomen) Inspection/Auscultation: + hypoactive bowel sounds; abdomen not distended Percussion/Palpation: + abdomen tender (Localized tenderness on left lower quadrant, with guarding /rigidity ), + guarding (lower abdomen bilaterally), + abdomen rigid and abdomen soft Skin no rashes, warm and dry Neurologic moves all extremities; no focal motor deficits Psychiatric A+Ox3, euthymic affect Discharge Data Allergies Allergy/AdvReac Type Severity Reaction Status Date / Time No Known Allergies Allergy Unverified 06/21/18 08:03 Consultations 06/21/18 11:13 ED Decision to Admit Stat 06/21/18 12:54 Consult Gastroenterology Routine Consult General Surgery Routine Ordered Studies 06/21/18 09:24 CT abd pelvis IV con only Stat 06/22/18 11:17 CT abd pelvis wo con Stat Hospital Course (1) Diverticulitis of intestine with abscess: Pt presented to ER with c/o abdominal pain x 2-3 days with tactile fevers and decreased appetite on 06/21/2018 In ER pt afebrile, P: 104 down to 77, R: 18, BP: 135/88, 97% on RA. WBC: 22, H/H: 10.8/32.5, LFTs: WNL, Lipase: 61 Developed worsening of abdominal pain today, leukocytosis worsening to 23K CT ABD/PELVIS: On admission 06/28/2018 1. There is moderate colonic diverticulosis with evidence of severe acute diverticulitis involving the distal descending/proximal sigmoid colon. 2. A diverticular abscess is identified adjacent to the descending colon and measures 3.3 x 2.7 cm. 4. There is a small volume of abdominopelvic ascites. 5. There are thick-walled and edematous loops of small bowel in the left midabdomen with surrounding mesenteric infiltration. This is likely related to adjacent diverticulitis. 6. Hepatomegaly. Patient was treated with bowel rest, IV fluids, empiric antibiotic with IV Zosyn Surgery and GI consulted, appreciate input Updated by surgery, given worsening of abdominal pain, progression of leukocytosis, recommends transfer to tertiary care for possible IR guided abscess drainage Discussed with [facility] spoke with on-call surgery team, recommends repeat a CT abdomen pelvis to assess any evidence of perforation If CT abdomen positive for perforation patient will need to go to immediate OR for exploratory laparotomy [facility] If no perforation noted, [place] surgical team is willing to take/accept her for transfer CT abdomen pelvis ordered noncontrast:(cr elevated 1.131.29 ) 1. Findings of stable to slightly progressive descending and proximal sigmoid diverticulitis. 2. Unchanging 2.9 cm marcus-colonic collection 3. Mildly progressive edematous change of multiple small bowel loops in the left central abdomen with findings suggesting potential reactive edematous change or reactive ideas throughout the reminder of the colon. 4. A slightly progressive abdominal and pelvic ascites. 5. The overall impression of the study is 1 of the moderately progressive diverticulitis and secondary reactive inflammatory bowel change. 6. No sign of perforation or free intra-peritoneal air or pneumoperitoneum Update given to [facility] surgical team, CT scan images already transmitted to her shape radiology PACS system, images will be reviewed by IR and colorectal surgical team, [facility] does not have any bed available Patient updated, Per patient, her insurance is accepted at [facility] Called [facility] in [place] Case discussed with coloRectal surgery Dr Divya Contreras kindly accepted the patient Bed availability confirmed by transfer center Patient will be transferred to [facility] in [place] via ground ACLS Chart copied, CD copy of all the CAT scan of CT abdomen pelvis sent with patient Patient's vitals been stable, abdominal pain improved to 4 out of 10 with IV Dilaudid Patient was stable to be transferred via ground ACUTE RENAL FAILURE (cr elevated 1.131.29 ) Possible secondary to dehydration/acute infection, acute sigmoid diverticulitis Patient got Toradol 15 mg x 1 dose yesterday 06/21/2018 at 1400 NSAIDs discontinued, IV fluids increased to 200 mL/h Avoid contrast studies: CT abdomen pelvis was done noncontrast DVT Prophylaxis -SCD and teds, pharmacological anticoagulation avoided as patient will need IR guided sigmoid abscess drainage Full Code Disposition: Transfer to [facility] in [place] via ground ACLS, Accepting physician colorectal surgery Dr. Divya Contreras MD Current Inpatient Medications Hydromorphone HCl (Dilaudid) 1 mg IV Q2H PRN PRN Reason: Pain Stop: 07/06/18 12:34 Last Admin: 06/22/18 21:18 Dose: 1 mg Documented by: Lactated Ringer's (Lr) 1,000 mls @ 100 mls/hr IV .Q10H KELLI Stop: 07/21/18 11:44 Last Infusion: 06/22/18 20:24 Dose: 100 mls/hr Documented by: Acetaminophen (Ofirmev) 1,000 mg in 100 mls @ 400 mls/hr IV Q8H KELLI; Protocol Stop: 07/21/18 13:59 Last Infusion: 06/22/18 13:55 Dose: Infused Documented by: Piperacillin Sod/Tazobactam (Sod 3.375 gm/ Dextrose) 115 mls @ 28.75 mls/hr IV Q8H KELLI; Protocol Stop: 07/01/18 15:59 Last Infusion: 06/22/18 20:39 Dose: Infused Documented by: Metronidazole (Flagyl) 500 mg in 100 mls @ 100 mls/hr IV Q8H KELLI; Protocol Stop: 07/02/18 19:59 Last Admin: 06/22/18 21:17 Dose: 100 mls/hr Documented by: Miscellaneous Information (Consult) 1 ea N/A UD PRN PRN Reason: Consult Stop: 07/21/18 12:53 Ondansetron HCl (Zofran) 4 mg IV Q6H PRN PRN Reason: Nausea Stop: 07/21/18 12:53 Total Time Total Time Spent Total Time Spent (In Minutes): approx 70 mins Total Time Includes: Examination of the Patient, Discharge Planning, Medication Reconciliation and Communication With Other Providers Discharge Plan Discharge Items Patient Disposition: Transfer Acute Care Hospital Reason For Visit: DIVERTICULAR ABSCESS Discharge Diagnosis: ACUTE SIGMOID DIVERICULITIS WITH DIVERTICULAR ABSCESS Discharge Goals: Decrease discomfort and Diagnostic testing Activity: As commented below Activity Comment: TOLERATED Non-emergency contact: Primary Care Provider Call non-emergency contact if: you have any medication questions Follow-up/Referrals: PCP,NO [Primary Care Provider] - Diet: See below Diet Comment: NPO Addtl Provider Instructions: ACUTE SIGMOID DIVERTICULITIS WITH ABSCESS TRANSFERRED TO [facility] -ACCEPTING PHYSICIAN DR DIVYA CONTRERAS COLORECTAL SURGERY Prescriptions: New piperacillin-tazobactam [Zosyn] 4.5 gram recon soln 4.5 gm IV Q6H 14 Days RF: 0 No Action No Known Home Medications RF: 0 Stand-Alone Forms: Call Back Authorization, [facility] Discharge Orders: Discharge Order (Routine); Ordered 06/22/18 Ordered By: Myrna Prajapati Admission Data Admit Date/Time: 06/21/18 11:32 Attending Provider: Myrna Prajapati Admit Provider: Myrna Prajapati Primary Care Provider: PCP,NO Other Providers: Myrna Prajapati ; Merry Long ; Kaleigh Buckner ; Neelima Escalante ; Ap Quinteros ; Trenton Martin ; Nat Michel ; Azul Randolph ; Luis Calle ; Anuel Zhou ; Monica Justice ; Linsey Meeks ; Neli Chisholm ; Lucy Membreno ; Meño Valencia ; Ofe Martin ; Anthony Carreon Service: Telemetry
[2018-06-22] MEDS: HYDROmorphone INJ 1 MG/ML SYRINGE IV PRN ×3 (15:54→21:18)
--- NOTE | 2018-06-22 16:51 | Hospitalist Progress Note ---
Date of Service June 22, 2018 Subjective Patient rechecked: At 4:44 PM Left lower quadrant abdominal pain controlled with IV Dilaudid, No nausea vomiting, patient remains afebrile, vitals stable Patient updated, : Still waiting for callback from [facility] colorectal surgery Dr. Neo Duarte Patient needs to be transferred to tertiary care for interventional radiology guided drainage of sigmoid diverticular abscess, Case discussed with Dr. Duarte at around 12 PM today, Updated regarding initial CT abdomen pelvis done on 06/21/2018, and repeat CT abdomen pelvis done today 06/22/2018, showing progression of size of the abscess/bowel inflammation, no evidence of perforation Colorectal surgery team agrees that patient meets criteria to be transferred to [place] for IR procedure Dr. Duarte wanted to review the CT scan images with interventional radiology, and call back Have not got any update from [facility] Called [facility] again, Dr. Duarte still waiting to review the CT images, which has not uploaded in the system yet Called [facility] CAT scan/radiology transmission extension [id number] CT scan was transmitted to [facility] at 12:44 PM [facility] has to download the images to patient's account to be able to see it Updated [facility], awaiting callback from colorectal surgery Dr. Duarte- DISCHARGE PLAN: Transfer to [facility] via ground ACLS today when bed available Results & Data Vital Signs (Past 12 Hours) Vital Signs Temp Pulse Pulse Resp BP Pulse Ox 06/22/18 15:23 37.8 C H 97 H 18 114/64 91 06/22/18 07:52 37.2 C 80 12 110/72 95
--- NOTE | 2018-06-22 19:06 | Hospitalist Progress Note ---
Date of Service June 22, 2018 7:02PM Attending addendum: Spoke with [facility], still awaiting accepting physician to transfer oatient Spoke with Dr. Duarte colorectal surgeon CAT images from [facility] has not been uploaded to [facility] radiology Dr. Duarte hesitant to accept the patient without looking at the images to decide whether abscess is drainable or not I did updated Dr. Duarte my concern -patient can deteriorate overnight, become septic/abscess could increase: [facility] Surgeon recommends in that case patient should be taken to the OR emergently by [facility] surgery team for exploratory laparotomy Also at present [facility] does not have any bed opening 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
[2018-06-22] MEDS ORDERED: Nursing to Pharmacy Communication ONE (20:25)
--- NOTE | 2018-06-22 20:45 | Surgery Progress Note ---
Date of Service June 22, 2018 Assessment & Plan (1) Diverticulitis of intestine with abscess: base on [facility] has no bed available tonight, I recommend to transfer to [facility], but pt wants to transfer to [facility], pt is doing better, less abdominal , no sepsis so far, continue IV antibiotic, repeat labs in am, I also talked to pt possible do exploratory laparotomy, possible colostomy, if pt's symptom is getting worse, D/W benefits, risks nad alternatives of the surgery, pt understood, she agrees with the plan, Subjective I ( Frankie Pineda MD)recheck pt : at 8:35PM, pt said she feels better compare yesterday and today this morning, passed gas, no diarrhea, no nausea, no vomiting, I called [facility] tranfer center, who said colorectal surgeon is still waiting to review CT scan, [facility] has no bed availaible tonight, she asked us to check bed tomorrow, Patient rechecked: At 4:44 PM Left lower quadrant abdominal pain controlled with IV Dilaudid, No nausea vomiting, patient remains afebrile, vitals stable Patient updated, : Still waiting for callback from [facility] colorectal surgery Dr. Neo Duarte Patient needs to be transferred to tertiary care for interventional radiology guided drainage of sigmoid diverticular abscess, Case discussed with Dr. Duarte at around 12 PM today, Updated regarding initial CT abdomen pelvis done on 06/21/2018, and repeat CT abdomen pelvis done today 06/22/2018, showing progression of size of the abscess/bowel inflammation, no evidence of perforation Colorectal surgery team agrees that patient meets criteria to be transferred to [place] for IR procedure Dr. Duarte wanted to review the CT scan images with interventional radiology, and call back Have not got any update from [facility] Called [place] transfer center again, Dr. Duarte still waiting to review the CT images, which has not uploaded in the system yet Called [facility] CAT scan/radiology transmission extension [id number] CT scan was transmitted to [facility] at 12:44 PM [facility] has to download the images to patient's account to be able to see it Updated [facility], awaiting callback from colorectal surgery Dr. Duarte- DISCHARGE PLAN: Transfer to [facility] via ground ACLS today when bed available Physical Exam Constitutional: WD/WN, vitals as above well developed and well nourished Respiratory: normal respiratory effort, lungs clear to auscultation Cardiovascular: RRR, no murmur, no edema Rate/Rhythm: regular rate and regular rhythm Heart Sounds: normal S1 and normal S2 Gastrointestinal (Abdomen): Percussion/Palpation: abdomen soft soft, slightly tenderness at LLQ, no rebound pain, no distend, BS + Neurologic: awake Psychiatric: Orientation: alert and oriented x 3 Results & Data Vital Signs (Past 12 Hours) Vital Signs Temp Pulse Resp BP Pulse Ox 06/22/18 16:10 37.1 C 06/22/18 15:23 37.8 C H 97 H 18 114/64 91 (1) Diverticulitis of intestine with abscess Diverticulitis bleeding: without bleeding Diverticulitis site: large intestine Qualified Code(s): K57.20 - Diverticulitis of large intestine with perforation and abscess without bleeding
[2018-06-22] MEDS: metroNIDAZOLE 500 MG/100 ML BAG IV SCH (21:17)
--- NOTE | 2018-06-22 22:14 | Hospitalist Progress Note ---
Date of Service June 22, 2018 Subjective Attending addendum: Unable to transfer to [facility], as no bed is available Patient is transferred to PCU for close monitoring of hemodynamics Patient evaluated bedside at approximately 9:45 PM at room 220 Per patient her insurance is accepted at [facility] contacted Case discussed with on-call colorectal surgery Dr. Divya Contreras kindly accepted the patient under her service Bed availability confirmed by transfer center at [facility] patient will be transferred to [facility] via ground ACLS Chart copy, CD copy of all the CAT scan of CT abdomen pelvis sent with patient Patient's vital has been stable, abdominal pain improved 4 out of 10 with IV Dilaudid On IV Zosyn/IV Flagyl added for broader coverage, Discussed with Dr. Contreras, in agreement with antibiotic choice Patient is stable to be transferred via ground tonight Myrna Prajapati MD Results & Data Vital Signs (Past 12 Hours) Vital Signs Temp Pulse Pulse Resp BP Pulse Ox 06/22/18 21:00 36.4 C L 92 H 20 131/81 97 06/22/18 16:10 37.1 C 06/22/18 15:23 37.8 C H 97 H 18 114/64 91
[2018-06-23] MEDS: LACTATED RINGER'S 1,000 ML IV SCH (00:15)
[2018-06-23] MEDS: PIPERACILLIN/TAZOBACTAM 3.375 GM in DEXTROSE 5% 100 ML IV SCH ×2 (00:15→08:02)
[2018-06-23] MEDS: HYDROmorphone INJ 1 MG/ML SYRINGE IV PRN ×4 (00:19→11:02)
[2018-06-23] MEDS: metroNIDAZOLE 500 MG/100 ML BAG IV SCH (04:12)
[2018-06-23] MEDS: ACETAMINOPHEN 1,000 MG/100 ML VIAL IV SCH (06:15)
[2018-06-23 08:00] LABS: Basophils # (auto) 0.01 K/uL (0-0.2); Eosinophils # (auto) 0.16 K/uL (0-0.5); Eosinophils % (auto) 0.8 %; Hematocrit (blood only) 27.7 % (37-47); Hemoglobin 9.1 g/dL (12.0-16.0); Immature Granulocytes # (auto) 0.12 K/uL (0.00-0.02); Immature Granulocytes % (auto) 0.6 %; Lymphocytes % (auto) 4.8 %; Mean Corpuscular Hgb Conc 32.9 g/dL (32-36); Mean Corpuscular Volume 79.4 fL (80-100); Mean Platelet Volume 10.4 fL (7.4-10.4); Monocytes # (auto) 1.75 K/uL (0.11-0.59); Monocytes % (auto) 8.4 %; Neutrophils # (auto) 17.68 K/uL (1.4-6.5); Neutrophils % (auto) 85.4 %; Platelet Count 324 K/uL (130-400); RDW Coefficient of Variation 15.4 % (11.5-14.5); RDW Standard Deviation 45.1 fL (36.4-46.3); Red Blood Count 3.49 M/uL (4.2-5.4); White Blood Count 20.72 K/uL (4.8-10.8)
[2018-06-23 08:19] LABS: BUN Creatinine Ratio 12.7 (10-20); Calcium 8.4 mg/dl (8.5-10.1); Creatinine Clr Calc Pharmacy 68.4 ml/min; Est GFR (African American) 71.5; Est GFR (Non-African American) 61.7; Potassium 3.3 mmol/L (3.5-5.1)
--- NOTE | 2018-06-23 08:47 | Infectious Disease Consult ---
Date of Consultation June 23, 2018 Assessment & Plan (1) Diverticulitis of intestine with abscess: 52-year-old previously healthy female with acute diverticulitis with diverticular abscess developing. Treatment with Zosyn appropriate, patient now to be transferred to [facility] for interventional procedure. Case discussed with hospitalist service. History of Present Illness Reason for Consultation: Diverticular abscess Attending Physician: Myrna Prajapati MD History of Present Illness 52-year-old female in prior good health was well until 3 days prior to admission, when she developed first pain mostly in her back, then developing into left lower quadrant pain which became progressively more severe, up to 8 out of 10 in intensity. Eventually came to the emergency department where CT scan, read by me, showed evidence of acute sigmoid diverticulitis with developing abscess. Patient was started on Zosyn and metronidazole, initially worsen, and plans for transfer to the [facility] for drainage procedure by interventional radiology arranged. This morning, patient feeling s omewhat better, less pain, no fever, cultures remain negative. Pain currently 2 out of 10 in intensity left lower quadrant. Allergies Allergy/AdvReac Type Severity Reaction Status Date / Time No Known Allergies Allergy Unverified 06/21/18 08:03 Home Medications Home Medications Medication Instructions Recorded Confirmed Type No Known Home Medications 06/21/18 06/21/18 History piperacillin-tazobactam [Zosyn] 4.5 gm IV Q6H 14 Days ea 06/22/18 Rx Patient History Medical History Diverticulitis of intestine with abscess (Acute) No significant past medical history (Chronic) Surgical History History of nasal septoplasty (Chronic) History of hernia repair (Chronic) History of dental surgery Family History Mother Stroke Father Mesothelioma Social History Preferred Language: Latvian Communication Ability: Effective Engraver Copperplate Required: No Beliefs That Will Affect Care: None Current Living Situation: Alone Other Information That Helps Us Care for You: No Feels Safe at Home: Yes Safety Concerns: Feels Safe At This Time Smoking Status: Never smoker Do You Dip or Chew Tobacco: No Hx Alcohol Use: Yes (5 drinks a week) Hx Substance Use: No Physical Exam Constitutional: WD/WN, vitals as above comfortable; no acute distress Eyes: PERRL, conjunctivae normal, anicteric sclerae ENMT: external ear and nose normal, oropharynx normal Neck: trachea midline, no thyromegaly neck nontender Respiratory: normal respiratory effort, lungs clear to auscultation normal percussion; does not use accessory muscles Cardiovascular: Rate/Rhythm: regular rate and regular rhythm Heart Sounds: normal S1 and normal S2; no gallop, no murmur and no cardiac rub Vessels: normal peripheral pulses; no JVD Gastrointestinal (Abdomen): Inspection/Auscultation: abdomen normal to inspection, + abdomen distended and normal bowel sounds Percussion/Palpation: + abdomen tender (Left lower quadrant without rebound or guarding); no hepatosplenomegaly and no abdominal mass Musculoskeletal: no cyanosis or clubbing, extremities motor strength 5/5 Spine: thoracic spine normal to inspection and lumbar spine normal to inspection; no cervical spinal tenderness Skin: no rashes, warm and dry normal turgor; no lesions Neurologic: patellar DTR's 2+ bilat, sensation intact no focal motor deficits Psychiatric: A+Ox3, euthymic affect Orientation: cooperative Lymphatic: no cervical or axillary lymphadenopathy no inguinal lymphadenopathy Results & Data Vital Signs (Past 12 Hours) Vital Signs Temp Pulse Pulse Resp BP Pulse Ox 06/23/18 08:06 36.5 C 103 H 16 139/68 96 06/23/18 04:10 36.4 C L 91 H 20 136/84 94 06/22/18 23:37 36.6 C 85 20 107/65 92 06/22/18 21:00 36.4 C L 92 H 20 131/81 97 Laboratory Results Short CBC 06/23/18 Range/Units 07:28 WBC 20.72 H (4.8-10.8) K/uL Hgb 9.1 L (12.0-16.0) g/dL Hct 27.7 L (37-47) % Plt Count 324 (130-400) K/uL BMP 06/23/18 07:28 Sodium 136 Potassium 3.3 L D Chloride 103 Carbon Dioxide 25 BUN 13 Creatinine 1.04 Glucose 83 Calcium 8.4 L Diagnostic Findings Microbiology 06/21/18 11:55 Blood Blood Culture - Preliminary No growth to date. 06/21/18 11:52 Blood Blood Culture - Preliminary No growth to date. 06/21/18 16:00 Urine,Clean Catch Urine Culture - Preliminary No growth - Less than 1,000 colonies/mL, Final report to follow. CT abd pelvis wo con CT DOSE: 547.80 mGy.cm HISTORY: sigmoid abscess /rule out perforation TECHNIQUE: Multiaxial CT images of the abdomen and pelvis were performed without contrast. A dose lowering technique was utilized adhering to the principles of ALARA. COMPARISON STUDY: 06/21/2018 FINDINGS: Interval development of bibasilar parenchymal infiltrative and atelectatic changes. Trace. Perisplenic ascites. Kidneys negative for hydronephrosis. Study is limited due to the absence of oral contrast. Liver is uniform. Gallbladder is mildly distended. Findings of mildly progressive colonic wall thickening and pericolonic infiltrative change throughout the colon. Findings of acute descending and proximal sigmoid diverticulitis are again noted. Extraluminal collection is again noted and is similar in overall size at 2.9 cm maximum. Mildly progressive wall thickening of several loops of small bowel in the left central abdominal region. A well-defined extraluminal air pocket is not appreciated. IMPRESSION: 1. Findings of stable to slightly progressive descending and proximal sigmoid diverticulitis. 2. Unchanging 2.9 cm pericolonic collection. 3. Mildly progressive edematous change of multiple small bowel loops in the left central abdomen with findings suggesting potential reactive edematous change or reactive ileus throughout the remainder of the colon. 4. Slightly progressive abdominal and pelvic ascites. 5. The overall impression of the study is one of moderately progressive diverticulitis and secondary reactive inflammatory bowel change. The above report was generated using voice recognition software. It may contain grammatical, syntax or spelling errors. Electronically signed by: Rafiq Calderon M.D. 06/22/2018 11:57 AM Dictated: 06/22/18 1149 Transcribed: 06/22/18 1149 (1) Diverticulitis of intestine with abscess Diverticulitis bleeding: without bleeding Diverticulitis site: large intestine Qualified Code(s): K57.20 - Diverticulitis of large intestine with perforation and abscess without bleeding
--- NOTE | 2018-06-23 08:59 | Hospitalist Progress Note ---
Date of Service June 23, 2018 Assessment & Plan (1) Diverticulitis of intestine with abscess: 06/23/2018: Patient was unable to be transferred to [facility] yesterday, due to lack of transportation/no ambulance service from [facility] [place] Called [facility] transfer center in this morning, Assured that patient will be assigned to the next available bed, ambulance transport arranged for 10 AM this morning Received call from [facility] , new bed avaialable / assigned for patient, All discharge paperwork's completed Patient evaluated bedside stable to be transferred via ground ACLS to [facility] in [place] Plan to transfer to [facility] under service of colorectal surgeon Dr. Divya Contreras at 10 AM today 06/22/2018 Pt presented to ER with c/o abdominal pain x 2-3 days with tactile fevers and decreased appetite on 06/21/2018 In ER pt afebrile, P: 104 down to 77, R: 18, BP: 135/88, 97% on RA. WBC: 22, H/H: 10.8/32.5, LFTs: WNL, Lipase: 61 Developed worsening of abdominal pain today, leukocytosis worsening to 23K CT ABD/PELVIS: On admission 06/28/2018 1. There is moderate colonic diverticulosis with evidence of severe acute diverticulitis involving the distal descending/proximal sigmoid colon. 2. A diverticular abscess is identified adjacent to the descending colon and measures 3.3 x 2.7 cm. 4. There is a small volume of abdominopelvic ascites. 5. There are thick-walled and edematous loops of small bowel in the left midabdomen with surrounding mesenteric infiltration. This is likely related to adjacent diverticulitis. 6. Hepatomegaly. Patient was treated with bowel rest, IV fluids, empiric antibiotic with IV Zosyn Surgery and GI consulted, appreciate input Updated by surgery, given worsening of abdominal pain, progression of leukocytosis, recommends transfer to tertiary care for possible IR guided abscess drainage Discussed with [facility] spoke with on-call surgery team, recommends repeat a CT abdomen pelvis to assess any evidence of perforation If CT abdomen positive for perforation patient will need to go to immediate OR for exploratory laparotomy [facility] If no perforation noted, [place] surgical team is willing to take/accept her for transfer CT abdomen pelvis ordered noncontrast:(cr elevated 1.131.29 ) 1. Findings of stable to slightly progressive descending and proximal sigmoid diverticulitis. 2. Unchanging 2.9 cm marcus-colonic collection 3. Mildly progressive edematous change of multiple small bowel loops in the left central abdomen with findings suggesting potential reactive edematous change or reactive ideas throughout the reminder of the colon. 4. A slightly progressive abdominal and pelvic ascites. 5. The overall impression of the study is 1 of the moderately progressive diverticulitis and secondary reactive inflammatory bowel change. 6. No sign of perforation or free intra-peritoneal air or pneumoperitoneum Update given to [facility] surgical team, CT scan images already transmitted to her shape radiology PACS system, images will be reviewed by IR and colorectal surgical team, [facility] does not have any bed available Patient updated, Per patient, her insurance is accepted at [facility] [employer] [facility] Called [facility] Case discussed with coloRectal surgery Dr Divya Contreras kindly accepted the patient Bed availability confirmed by transfer center Patient will be transferred to [facility] via ground ACLS Chart copied, CD copy of all the CAT scan of CT abdomen pelvis sent with patient Patient's vitals been stable, abdominal pain improved to 4 out of 10 with IV Dilaudid Patient was stable to be transferred via ground Current Inpatient Medications Hydromorphone HCl (Dilaudid) 1 mg IV Q2H PRN PRN Reason: Pain Stop: 07/06/18 12:34 Last Admin: 06/22/18 21:18 Dose: 1 mg Documented by: Lactated Ringer's (Lr) 1,000 mls @ 100 mls/hr IV .Q10H KELLI Stop: 07/21/18 11:44 Last Infusion: 06/22/18 20:24 Dose: 100 mls/hr Documented by: Acetaminophen (Ofirmev) 1,000 mg in 100 mls @ 400 mls/hr IV Q8H KELLI; Protocol Stop: 07/21/18 13:59 Last Infusion: 06/22/18 13:55 Dose: Infused Documented by: Piperacillin Sod/Tazobactam (Sod 3.375 gm/ Dextrose) 115 mls @ 28.75 mls/hr IV Q8H KELLI; Protocol Stop: 07/01/18 15:59 Last Infusion: 06/22/18 20:39 Dose: Infused Documented by: Metronidazole (Flagyl) 500 mg in 100 mls @ 100 mls/hr IV Q8H KELLI; Protocol Stop: 07/02/18 19:59 Last Admin: 06/22/18 21:17 Dose: 100 mls/hr Documented by: Miscellaneous Information (Consult) 1 ea N/A UD PRN PRN Reason: Consult Stop: 07/21/18 12:53 Ondansetron HCl (Zofran) 4 mg IV Q6H PRN PRN Reason: Nausea Stop: 07/21/18 12:53 (2) Acute renal failure (ARF): ACUTE RENAL FAILURE (cr elevated 1.131.29 ) Possible secondary to dehydration/acute infection, acute sigmoid diverticulitis Patient got Toradol 15 mg x 1 dose yesterday 06/21/2018 at 1400 NSAIDs discontinued, IV fluids increased to 200 mL/h Avoid contrast studies: CT abdomen pelvis was done noncontrast CODE STATUS full code DVT Prophylaxis -SCD and teds, pharmacological anticoagulation avoided as patient will need IR guided sigmoid abscess drainage Disposition Transfer to [facility] in [place] via ground ACLS, Accepting physician colorectal surgery Dr. Divya Contreras MD Current Inpatient Medications Hydromorphone HCl (Dilaudid) 1 mg IV Q2H PRN PRN Reason: Pain Stop: 07/06/18 12:34 Last Admin: 06/23/18 08:09 Dose: 1 mg Documented by: Acetaminophen (Ofirmev) 1,000 mg in 100 mls @ 400 mls/hr IV Q8H KELLI; Protocol Stop: 07/21/18 13:59 Last Infusion: 06/23/18 06:31 Dose: Infused Documented by: Piperacillin Sod/Tazobactam (Sod 3.375 gm/ Dextrose) 115 mls @ 28.75 mls/hr IV Q8H KELLI; Protocol Stop: 07/01/18 15:59 Last Admin: 06/23/18 08:02 Dose: 28.8 mls/hr Documented by: Metronidazole (Flagyl) 500 mg in 100 mls @ 100 mls/hr IV Q8H KELLI; Protocol Stop: 07/02/18 19:59 Last Infusion: 06/23/18 05:43 Dose: Infused Documented by: Potassium Chloride (K Niall / Wtr) 10 meq in 100 mls @ 100 mls/hr IV Q1H [facility] Stop: 06/23/18 10:48 Potassium Chloride 20 meq/ (Lactated Ringer's) 1,010 mls @ 125 mls/hr IV .Q8H5M [facility] Stop: 07/23/18 08:59 Miscellaneous Information (Consult) 1 ea N/A UD PRN PRN Reason: Consult Stop: 07/21/18 12:53 Ondansetron HCl (Zofran) 4 mg IV Q6H PRN PRN Reason: Nausea Stop: 07/21/18 12:53 Subjective Patient admitted with acute sigmoid diverticulitis/abscess Surgery team at [facility] recommended IR guided drainage of absence/transfer to higher level/tertiary level center Arrangements made to transfer patient to [facility] yesterday 06/22/2018 As [facility] did not had any bed available Patient was accepted under service of colorectal surgery Dr.Najjia Contreras Patient was not transported overnight due to lack of ambulance/transport service to [facility] This morning team was [facility]. Patient evaluated at bedside in room 220 bed 1 Had on eventful night, left lower quadrant pain persist 68/10, just got IV Dilaudid, pain is well controlled Afebrile, vitals remained stable overnight, no nausea vomiting Patient reports of feeling comfortable except for left lower quadrant pain Lab reviewed this a.m.: WBC improved to 20K from 23K yesterday, Lactic acid serial checks remains within normal limit Slight drop of hemoglobin 10.89.99.1 Possible representing dilutional drop No evidence of GI bleed noted, Had one normal bowel movement yesterday, no dark stool or blood in stool No nausea vomiting Procalcitonin level improved 4.36 on 06/22/2018 10:45 AM to 3.54 at 2300, A.m. procalcitonin level pending Patient does not show any evidence/signs symptoms of acute abdomen, severe sepsis, vitals stable Surgery team at [facility] updated regarding patient still in hospital, they will evaluate the patient in a.m. rounds Physical Exam Constitutional: WD/WN, vitals as above no acute distress Eyes: + anicteric sclerae ENMT: Mouth: no oral mucosal abnormality (Moist oral mucosa) Neck: trachea midline, no thyromegaly Respiratory: normal respiratory effort, lungs clear to auscultation Cardiovascular: RRR, no murmur, no edema Gastrointestinal (Abdomen): Inspection/Auscultation: + hyperactive bowel sounds Percussion/Palpation: + abdomen tender (Left lower quadrant), + guarding (Left lower quadrant) and abdomen soft Musculoskeletal: no cyanosis or clubbing, extremities motor strength 5/5 Skin: no rashes, warm and dry Neurologic: PERRL, EOMI, accommodation nl, no face palsy, no dysarthria Psychiatric: A+Ox3, euthymic affect Results & Data Vital Signs (Past 12 Hours) Vital Signs Temp Pulse Pulse Resp BP Pulse Ox 06/23/18 08:06 36.5 C 103 H 16 139/68 96 06/23/18 04:10 36.4 C L 91 H 20 136/84 94 06/22/18 23:37 36.6 C 85 20 107/65 92 06/22/18 21:00 36.4 C L 92 H 20 131/81 97 (1) Diverticulitis of intestine with abscess Diverticulitis bleeding: without bleeding Diverticulitis site: large intestine Qualified Code(s): K57.20 - Diverticulitis of large intestine with perforation and abscess without bleeding
[2018-06-23] MEDS ORDERED: POTASSIUM CHLORIDE 20 MEQ in LACTATED RINGER'S 1,000 ML IV SCH (09:00)
[2018-06-23] MEDS: POTASSIUM CHLORIDE / WTR 10 MEQ/100 ML PLCT IV SCH ×2 (09:51→10:57)
--- NOTE | 2018-06-23 11:15 | Surgery Progress Note ---
Date of Service June 23, 2018 Assessment & Plan (1) Diverticulitis of intestine with abscess: Abscess measuring 3.3 x 2.9 cm No evidence of pneumoperitoneum Leukocytosis improved today to 20K (23K yesterday) No n/v abdominal pain mildly improving but still can be 9/10 at times, controlled with Dilaudid febrile yesterday afternoon, afebrile since Plan: Plan to transfer to [facility] under service of colorectal surgeon Dr. Divya Contreras at 10 AM today Continue IV pain management with Dilaudid prn Continue IV Zosyn and Flagyl Continue IV Zofran prn nausea Discussed with patient the need for colonoscopy 6-8 weeks after inflammation has subsided to rule out underlying malignancy. Patient understood. Has not had baseline screening colonoscopy as of yet. Family history of colon polyps (Mother) Thank you for involving us in the care of this patient Subjective feeling better today pain still present, comes in waves, more so in the Left lower abdomen and describes as cramping pain no n/v had fever, chills, sweats yesterday afternoon, nothing since being transferred to [facility] today Physical Exam Constitutional: WD/WN, vitals as above no acute distress and not ill appearing Respiratory: normal respiratory effort; no respiratory distress Gastrointestinal (Abdomen): Inspection/Auscultation: + abdomen distended Percussion/Palpation: + abdomen tender (LLQ on mild palpation); no guarding and abdomen not rigid mildly firm given distention Skin: no rashes, warm and dry Psychiatric: A+Ox3, euthymic affect Results & Data Vital Signs (Past 12 Hours) Vital Signs Temp Pulse Pulse Resp BP Pulse Ox 06/23/18 09:44 36.5 C 103 H 85 16 139/68 96 06/23/18 08:06 36.5 C 103 H 16 139/68 96 06/23/18 04:10 36.4 C L 91 H 20 136/84 94 06/22/18 23:37 36.6 C 85 20 107/65 92 Laboratory Results 06/23/18 06/23/18 06/23/18 Range/Units 07:32 07:28 07:28 WBC (4.8-10.8) K/uL RBC (4.2-5.4) M/uL Hgb (12.0-16.0) g/dL Hct (37-47) % MCV (80-100) fL MCH (25-34) pg MCHC (32-36) g/dL RDW Std Deviation (36.4-46.3) fL RDW Coeff of Quinton (11.5-14.5) % Plt Count (130-400) K/uL MPV (7.4-10.4) fL Immature Gran % (Auto) % Neut % (Auto) % Lymph % (Auto) % Mcclain % (Auto) % Eos % (Auto) % Baso % (Auto) % Immature Gran # (Auto) (0.00-0.02) K/uL Neut # (Auto) (1.4-6.5) K/uL Lymph # (Auto) (1.2-3.4) K/uL Mcclain # (Auto) (0.11-0.59) K/uL Eos # (Auto) (0-0.5) K/uL Baso # (Auto) (0-0.2) K/uL Sodium 136 (136-145) mmol/L Potassium 3.3 L D (3.5-5.1) mmol/L Chloride 103 (98-107) mmol/L Carbon Dioxide 25 (21-32) mmol/L Anion Gap 8.0 (3-11) BUN 13 (7-18) mg/dl Creatinine 1.04 (0.6-1.2) mg/dl Est Cr Clr Drug Dosing 68.4 ml/min Est GFR ( Amer) 71.5 Est GFR (Non-Af Amer) 61.7 BUN/Creatinine Ratio 12.7 (10-20) Glucose 83 (70-99) mg/dl Lactate 0.8 (0.4-2.0) mmol/L Calcium 8.4 L (8.5-10.1) mg/dl Procalcitonin 3.19 H (0-0.5) ng/ml 06/23/18 06/22/18 06/22/18 Range/Units 07:28 23:02 23:02 WBC 20.72 H (4.8-10.8) K/uL RBC 3.49 L (4.2-5.4) M/uL Hgb 9.1 L (12.0-16.0) g/dL Hct 27.7 L (37-47) % MCV 79.4 L (80-100) fL MCH 26.1 (25-34) pg MCHC 32.9 (32-36) g/dL RDW Std Deviation 45.1 (36.4-46.3) fL RDW Coeff of Quinton 15.4 H (11.5-14.5) % Plt Count 324 (130-400) K/uL MPV 10.4 (7.4-10.4) fL Immature Gran % (Auto) 0.6 % Neut % (Auto) 85.4 % Lymph % (Auto) 4.8 % Mcclain % (Auto) 8.4 % Eos % (Auto) 0.8 % Baso % (Auto) 0.0 % Immature Gran # (Auto) 0.12 H (0.00-0.02) K/uL Neut # (Auto) 17.68 H (1.4-6.5) K/uL Lymph # (Auto) 1.00 L (1.2-3.4) K/uL Mcclain # (Auto) 1.75 H (0.11-0.59) K/uL Eos # (Auto) 0.16 (0-0.5) K/uL Baso # (Auto) 0.01 (0-0.2) K/uL Sodium (136-145) mmol/L Potassium (3.5-5.1) mmol/L Chloride (98-107) mmol/L Carbon Dioxide (21-32) mmol/L Anion Gap (3-11) BUN (7-18) mg/dl Creatinine (0.6-1.2) mg/dl Est Cr Clr Drug Dosing ml/min Est GFR ( Amer) Est GFR (Non-Af Amer) BUN/Creatinine Ratio (10-20) Glucose (70-99) mg/dl Lactate 0.7 (0.4-2.0) mmol/L Calcium (8.5-10.1) mg/dl Procalcitonin 3.54 H (0-0.5) ng/ml 06/22/18 06/22/18 Range/Units 10:45 10:45 WBC (4.8-10.8) K/uL RBC (4.2-5.4) M/uL Hgb (12.0-16.0) g/dL Hct (37-47) % MCV (80-100) fL MCH (25-34) pg MCHC (32-36) g/dL RDW Std Deviation (36.4-46.3) fL RDW Coeff of Quinton (11.5-14.5) % Plt Count (130-400) K/uL MPV (7.4-10.4) fL Immature Gran % (Auto) % Neut % (Auto) % Lymph % (Auto) % Mcclain % (Auto) % Eos % (Auto) % Baso % (Auto) % Immature Gran # (Auto) (0.00-0.02) K/uL Neut # (Auto) (1.4-6.5) K/uL Lymph # (Auto) (1.2-3.4) K/uL Mcclain # (Auto) (0.11-0.59) K/uL Eos # (Auto) (0-0.5) K/uL Baso # (Auto) (0-0.2) K/uL Sodium (136-145) mmol/L Potassium (3.5-5.1) mmol/L Chloride (98-107) mmol/L Carbon Dioxide (21-32) mmol/L Anion Gap (3-11) BUN (7-18) mg/dl Creatinine (0.6-1.2) mg/dl Est Cr Clr Drug Dosing ml/min Est GFR ( Amer) Est GFR (Non-Af Amer) BUN/Creatinine Ratio (10-20) Glucose (70-99) mg/dl Lactate 0.9 (0.4-2.0) mmol/L Calcium (8.5-10.1) mg/dl Procalcitonin 4.36 H (0-0.5) ng/ml (1) Diverticulitis of intestine with abscess Diverticulitis bleeding: without bleeding Diverticulitis site: large intestine Qualified Code(s): K57.20 - Diverticulitis of large intestine with perforation and abscess without bleeding
[2018-06-23] MEDS ORDERED: HYDROmorphone INJ 2 MG/ML SYR/VIAL ONE (20:36)
--- NOTE | 2018-06-24 14:41 | Discharge Summary ---
Date of Service June 23, 2018 Admission HPI Per Admitting Provider Pt is 52 y/o F with no significant past medical history presented to ER with complaint of abdominal pain x3 days. Patient states 3 days ago started with some low back aching and mild abdominal discomfort. Yesterday with increased abdominal pain worse to lower quadrants however pain is diffuse and described as sharp. Patient reports noted abdominal bloating. Yesterday with decreased appetite and oral intake. Last night reports chills and tactile fevers. Denies nausea, vomiting, diarrhea, constipation. Denies ABBOTT, dizziness, syncope, vision changes, neck pain, CP, SOB, orthopnea, palpitations, cough, sore throat, choking, otalgia, rhinorrhea, melena, hematochezia, paresthesias, weakness, extremity edema, rashes, urinary symptoms. No hx colonoscopy. Principal Diagnosis SIGMOID DIVERTIUCLITIS/ABSESS Discharge Exam Constitutional WD/WN, vitals as above well groomed, cooperative and comfortable; no acute distress Eyes PERRL, conjunctivae normal, anicteric sclerae + anicteric sclerae ENMT external ear and nose normal, oropharynx normal Mouth: no oral mucosal abnormality (Moist oral mucosa) Neck trachea midline, no thyromegaly Respiratory normal respiratory effort, lungs clear to auscultation Cardiovascular RRR, no murmur, no edema Gastrointestinal (Abdomen) Inspection/Auscultation: + hyperactive bowel sounds and + hypoactive bowel sounds; abdomen not distended Percussion/Palpation: + abdomen tender (Left lower quadrant), + guarding (Left lower quadrant), + abdomen rigid and abdomen soft Musculoskeletal no cyanosis or clubbing, extremities motor strength 5/5 Skin no rashes, warm and dry no jaundice Neurologic PERRL, EOMI, accommodation nl, no face palsy, no dysarthria moves all extremities; no focal motor deficits Motor/Sensory: no asterixis Psychiatric A+Ox3, euthymic affect Lymphatic no lymphedema Discharge Data Allergies Allergy/AdvReac Type Severity Reaction Status Date / Time No Known Allergies Allergy Unverified 06/21/18 08:03 Consultations 06/21/18 11:13 ED Decision to Admit Stat 06/21/18 12:54 Consult Gastroenterology Routine Consult General Surgery Routine 06/22/18 19:06 Consult Infectious Diseases Routine Ordered Studies 06/21/18 09:24 CT abd pelvis IV con only Stat 06/22/18 11:17 CT abd pelvis wo con Stat Hospital Course (1) Diverticulitis of intestine with abscess: 06/23/2018: Patient was unable to be transferred to [facility] yesterday, due to lack of transportation/no ambulance service from [facility] To [place] Called [facility] transfer center in this morning, Assured that patient will be assigned to the next available bed, ambulance transport arranged for 10 AM this morning Received call from [facility] , new bed avaialable / assigned for patient, All discharge paperwork's completed Patient evaluated bedside stable to be transferred via ground ACLS to [facility] in [place] Plan to transfer to [facility] under service of colorectal surgeon Dr. Divya Contreras at 10 AM today 06/22/2018 Pt presented to ER with c/o abdominal pain x 2-3 days with tactile fevers and decreased appetite on 06/21/2018 In ER pt afebrile, P: 104 down to 77, R: 18, BP: 135/88, 97% on RA. WBC: 22, H/H: 10.8/32.5, LFTs: WNL, Lipase: 61 Developed worsening of abdominal pain today, leukocytosis worsening to 23K CT ABD/PELVIS: On admission 06/28/2018 1. There is moderate colonic diverticulosis with evidence of severe acute diverticulitis involving the distal descending/proximal sigmoid colon. 2. A diverticular abscess is identified adjacent to the descending colon and measures 3.3 x 2.7 cm. 4. There is a small volume of abdominopelvic ascites. 5. There are thick-walled and edematous loops of small bowel in the left midabdomen with surrounding mesenteric infiltration. This is likely related to adjacent diverticulitis. 6. Hepatomegaly. Patient was treated with bowel rest, IV fluids, empiric antibiotic with IV Zosyn Surgery and GI consulted, appreciate input Updated by surgery, given worsening of abdominal pain, progression of leukocytosis, recommends transfer to tertiary care for possible IR guided absce ss drainage Discussed with [facility] spoke with on-call surgery team, recommends repeat a CT abdomen pelvis to assess any evidence of perforation If CT abdomen positive for perforation patient will need to go to immediate OR for exploratory laparotomy [facility] If no perforation noted, [place] surgical team is willing to take/accept her for transfer CT abdomen pelvis ordered noncontrast:(cr elevated 1.131.29 ) 1. Findings of stable to slightly progressive descending and proximal sigmoid diverticulitis. 2. Unchanging 2.9 cm marcus-colonic collection 3. Mildly progressive edematous change of multiple small bowel loops in the left central abdomen with findings suggesting potential reactive edematous change or reactive ideas throughout the reminder of the colon. 4. A slightly progressive abdominal and pelvic ascites. 5. The overall impression of the study is 1 of the moderately progressive diverticulitis and secondary reactive inflammatory bowel change. 6. No sign of perforation or free intra-peritoneal air or pneumoperitoneum Update given to [facility] surgical team, CT scan images already transmitted to her shape radiology PACS system, images will be reviewed by IR and colorectal surgical team, [facility] does not have any bed available Patient updated, Per patient, her insurance is accepted at [facility] Called [facility] Case discussed with coloRectal surgery Dr Divya Contreras kindly accepted the patient Bed availability confirmed by transfer center Patient will be transferred to [facility] via ground ACLS Chart copied, CD copy of all the CAT scan of CT abdomen pelvis sent with patient Patient's vitals been stable, abdominal pain improved to 4 out of 10 with IV Dilaudid Patient was stable to be transferred via ground Current Inpatient Medications Hydromorphone HCl (Dilaudid) 1 mg IV Q2H PRN PRN Reason: Pain Stop: 07/06/18 12:34 Last Admin: 06/22/18 21:18 Dose: 1 mg Documented by: Lactated Ringer's (Lr) 1,000 mls @ 100 mls/hr IV .Q10H KELLI Stop: 07/21/18 11:44 Last Infusion: 06/22/18 20:24 Dose: 100 mls/hr Documented by: Acetaminophen (Ofirmev) 1,000 mg in 100 mls @ 400 mls/hr IV Q8H KELLI; Protocol Stop: 07/21/18 13:59 Last Infusion: 06/22/18 13:55 Dose: Infused Documented by: Piperacillin Sod/Tazobactam (Sod 3.375 gm/ Dextrose) 115 mls @ 28.75 mls/hr IV Q8H KELLI; Protocol Stop: 07/01/18 15:59 Last Infusion: 06/22/18 20:39 Dose: Infused Documented by: Metronidazole (Flagyl) 500 mg in 100 mls @ 100 mls/hr IV Q8H KELLI; Protocol Stop: 07/02/18 19:59 Last Admin: 06/22/18 21:17 Dose: 100 mls/hr Documented by: Miscellaneous Information (Consult) 1 ea N/A UD PRN PRN Reason: Consult Stop: 07/21/18 12:53 Ondansetron HCl (Zofran) 4 mg IV Q6H PRN PRN Reason: Nausea Stop: 07/21/18 12:53 (2) Acute renal failure (ARF): ACUTE RENAL FAILURE (cr elevated 1.131.29 ) Possible secondary to dehydration/acute infection, acute sigmoid diverticulitis Patient got Toradol 15 mg x 1 dose yesterday 06/21/2018 at 1400 NSAIDs discontinued, IV fluids increased to 200 mL/h Avoid contrast studies: CT abdomen pelvis was done noncontrast CODE STATUS full code DVT Prophylaxis -SCD and teds, pharmacological anticoagulation avoided as patient will need IR guided sigmoid abscess drainage Disposition Transfer to [facility] in [place] via ground ACLS, Accepting physician colorectal surgery Dr. Divya Contreras MD Current Inpatient Medications Hydromorphone HCl (Dilaudid) 1 mg IV Q2H PRN PRN Reason: Pain Stop: 07/06/18 12:34 Last Admin: 06/23/18 08:09 Dose: 1 mg Documented by: Acetaminophen (Ofirmev) 1,000 mg in 100 mls @ 400 mls/hr IV Q8H KELLI; Protocol Stop: 07/21/18 13:59 Last Infusion: 06/23/18 06:31 Dose: Infused Documented by: Piperacillin Sod/Tazobactam (Sod 3.375 gm/ Dextrose) 115 mls @ 28.75 mls/hr IV Q8H KELLI; Protocol Stop: 07/01/18 15:59 Last Admin: 06/23/18 08:02 Dose: 28.8 mls/hr Documented by: Metronidazole (Flagyl) 500 mg in 100 mls @ 100 mls/hr IV Q8H KELLI; Protocol Stop: 07/02/18 19:59 Last Infusion: 06/23/18 05:43 Dose: Infused Documented by: Potassium Chloride (K Niall / Wtr) 10 meq in 100 mls @ 100 mls/hr IV Q1H KELLI Stop: 06/23/18 10:48 Potassium Chloride 20 meq/ (Lactated Ringer's) 1,010 mls @ 125 mls/hr IV .Q8H5M KELLI Stop: 07/23/18 08:59 Miscellaneous Information (Consult) 1 ea N/A UD PRN PRN Reason: Consult Stop: 07/21/18 12:53 Ondansetron HCl (Zofran) 4 mg IV Q6H PRN PRN Reason: Nausea Stop: 07/21/18 12:53 Total Time Total Time Spent Total Time Spent (In Minutes): APPROX 70mins Total Time Includes: Examination of the Patient, Discharge Planning and Communication With Other Providers Discharge Plan Discharge Items Patient Disposition: Transfer [facility] Reason For Visit: DIVERTICULAR ABSCESS Discharge Diagnosis: ACUTE SIGMOID DIVERICULITIS WITH DIVERTICULAR ABSCESS Discharge Goals: Decrease discomfort and Diagnostic testing Activity: As commented below Activity Comment: TOLERATED Non-emergency contact: Primary Care Provider Call non-emergency contact if: you have any medication questions Follow-up/Referrals: PCP,NO [Primary Care Provider] - Diet: See below Diet Comment: NPO Addtl Provider Instructions: ACUTE SIGMOID DIVERTICULITIS WITH ABSCESS TRANSFERRED TO [facility] -ACCEPTING PHYSICIAN DR DIVYA CONTRERAS COLORECTAL SURGERY Prescriptions: New piperacillin-tazobactam [Zosyn] 4.5 gram recon soln 4.5 gm IV Q6H 14 Days RF: 0 No Action No Known Home Medications RF: 0 Stand-Alone Forms: Call Back Authorization, [facility] Discharge Orders: Discharge Order (Routine); Ordered 06/22/18 Ordered By: Myrna Prajapati Admission Data Admit Date/Time: 06/21/18 11:32 Attending Provider: Myrna Prajapati Admit Provider: Myrna Prajapati Primary Care Provider: PCP,NO Other Providers: Myrna Prajapati ; Merry Long ; Klaeigh Buckner ; Neelima Escalante ; Ap Quinteros ; Trenton Martin ; Nat Michel ; Azul Randolph ; Luis Calle ; Anuel Zhou ; Monica Hanna ; Linsey Meeks ; Neli Chisholm ; Lucy Membreno ; Meño Valencia ; Ofe Martin ; Anthony Carreon Service: Telemetry Other Interventions: Discharge Summary Assessment (RN) Last Done: 06/23/18 12:02 DC Date/Time DO NOT enter until pt leaves facility: 06/23/18 11:45
== END 2018-06-23 11:45 | disposition short-term general hospital (02) | DRG 392 ==
LOC: ED 07:08 → 3W 11:32 → 2S 06-22 18:53